=== PATIENT | female | born 1975 | race Caucasian/White ===

== ENCOUNTER 2020-10-23 16:11 | Outpatient (REF) | payer OTHER, MEDICAID, SELFPAY ==
[2020-10-23 16:40] LABS: MANUAL DIFF FLAG NO
[2020-10-23 16:54] LABS: Basophils Percent Auto 0.3 % (0-2); Eosinophils Absolute Auto 0.1 X10*3/uL (0.0-0.4); Eosinophils Percent Auto 1.2 % (0-4); Hematocrit 38.6 % (37-47); Hemoglobin 12.4 g/dl (12.0-16.0); Imm Gran Abs Auto 0.02 X10*3/uL (0.00-0.03); Imm Gran Pct Auto 0.2 % (0.0-0.4); Lymphocytes Absolute Auto 3.4 X10*3/uL (1.2-4.9); Lymphocytes Percent Auto 37.2 % (20-40); Mean Corpuscular HGB Conc 32.1 g/dl (31.0-35.0); Mean Corpuscular Hemoglobin 28.7 pg (27.0-33.0); Mean Corpuscular Volume 89.4 fL (80-98); Mean Platelet Volume 10.3 fL (9.4-12.3); Monocytes Absolute Auto 0.4 X10*3/uL (0.1-1.2); Monocytes Percent Auto 4.6 % (2-11); Neutrophils Absolute Auto 5.1 X10*3/uL (2.0-8.3); Neutrophils Percent Auto 56.5 % (45-73); Platelet Count 354 X10*3/uL (160-400); Red Blood Count 4.32 X10*6/uL (4.20-5.50); Red Cell Distribution Width 12.6 % (11.0-16.0)
[2020-10-23 17:10] LABS: Alanine Aminotransferase 30 U/L (0-31); Albumin Level 4.7 g/dL (3.5-5.0); Alkaline Phosphatase 110 U/L (39-117); Anion Gap 13 (12-20); Aspartate Amino Transferase 21 U/L (5-31); Bilirubin Total 0.2 mg/dL (0.0-1.0); Blood Urea Nitrogen 20 mg/dL (9-16); Calcium 9.9 mg/dL (8.4-10.2); Carbon Dioxide 28 mmol/L (22-29); Chloride 104 mmol/L (96-108); Estimated Glomerular Filt Rate > 60; Glucose Random 101 mg/dL (60-115); Potassium 4.7 mmol/l (3.3-5.1); Sodium 140 mmol/L (135-145); Total Protein 7.8 g/dL (6.5-8.0)
[2020-10-23 17:31] LABS: Free T4 (Free Thyroxine) 0.87 ng/dL (0.71-1.85); Thyroid Stimulating Hormone 0.78 uIU/mL (0.32-4.0)
== END 2020-10-23 16:12 | disposition home or self-care (01) ==
LOC: HO.LAB 16:11
PROVIDERS: PCP Internal Medicine; Visit Provider Internal Medicine
DX: I10 Essential (primary) hypertension (principal); R53.83 Other fatigue
CPT/HCPCS: 36415; 80053; 84439; 84443; 85025

== ENCOUNTER 2020-10-25 14:09 | Outpatient (REF) | payer OTHER, MEDICAID, SELFPAY ==
--- NOTE | 2020-10-25 14:14 | MM_ITS ---
EXAMINATION: MM SCREENING DIGITAL BREAST TOMOSYNTHESIS, BILATERAL CLINICAL INFORMATION: Screening. Asymptomatic. The lifetime risk of breast cancer based on the Tyrer-Cuzick Model is 11%. COMPARISON: Mammography: 06/06/2019, 05/26/2018, 07/17/2015 TECHNIQUE: Digital breast tomosynthesis is performed in both the craniocaudal and mediolateral oblique views along with computer-aided detection (CAD). Synthesized 2D images are generated from the tomosynthesis. FINDINGS: There are scattered areas of fibroglandular density (ACR BI-RADS breast composition Category b). There are no significant masses, abnormal calcifications, or other abnormalities. Breast tissue composition borders on heterogeneously dense. There is no developing density. Axillary nodes are stable. Skin contours are smooth. MM/MM tomosynthesis screening BI IMPRESSION: No mammographic evidence of malignancy. ASSESSMENT: BI-RADS 1: Negative RECOMMENDATION: Routine annual mammography screening. This patient's information was entered into a reminder system with a target due date for their next mammogram.
== END 2020-10-25 14:10 | disposition home or self-care (01) ==
LOC: HO.MAMMO 14:09
PROVIDERS: PCP Internal Medicine; Visit Provider Internal Medicine
DX: Z12.31 Encounter for screening mammogram for malignant neoplasm of breast (principal)
CPT/HCPCS: 77063; 77067

== ENCOUNTER 2020-11-14 16:00 | Outpatient (REF) | payer OTHER, MEDICAID, SELFPAY ==
--- NOTE | ~2020-11-14 | US_ITS ---
EXAMINATION: US THYROID CLINICAL INFORMATION: Enlarged thyroid. COMPARISON: Ultrasound soft tissue head/neck thyroid dated 10/29/2007. TECHNIQUE: Linear transducer grayscale and color Doppler examination with attention to the region of the thyroid. FINDINGS: SIZE: Measurements of the thyroid lobes and nodules are given in sagittal, anteroposterior and transverse dimensions respectively. Right Thyroid Lobe: 5.2 x 1.8 x 1.7 cm, volume 7.9 mL. Previously 4.9 x 1.6 x 1.2 cm, volume 4.9 mL. Parenchyma: The gland echotexture is homogeneous. Thyroid vascularity is normal. Left Thyroid Lobe: 5.1 x 1.3 x 1.6 cm, volume 5.3 mL. Previously 4.5 x 1.0 x 1.2 cm, volume 2.8 mL. Parenchyma: The gland echotexture is homogeneous. Thyroid vascularity is normal. Isthmus: 0.3 cm in maximum AP dimension. Previously 0.2 cm. No focal thyroid nodule is seen. NODES: No lymphadenopathy is seen in the tissue surrounding the thyroid gland. US/US thyroid IMPRESSION: Unremarkable thyroid gland. ACR TI-RADS RECOMMENDATIONS: Ultrasound-guided fine-needle aspiration, followup ultrasound, no further follow up. * TR1 (0 point) and TR 2 (2 points): No FNA or follow up * TR3 (3 points): FNA if more than or equal to 2.5 cm in maximum dimension, follow up in 1, 3 and 5 years if 1.5 to 2.4 cm in maximum dimension. * TR4 (4-6 points): FNA if more than or equal to 1.5 cm in maximum dimension, follow up in 1, 2, 3 and 5 years if 1 to 1.4 cm in maximum dimension. * TR5 (more than or equal to 7 points): FNA if more than or equal to 1 cm in maximum dimension, follow up every year for 5 years if 0.5 to 0.9 cm in maximum dimension. * TR3, TR4 or TR5 nodules that are below the size threshold for follow up receive no follow up.
== END 2020-11-14 16:01 | disposition home or self-care (01) ==
LOC: HO.US 16:00
PROVIDERS: Visit Provider Internal Medicine
DX: E04.9 Nontoxic goiter, unspecified (principal)
CPT/HCPCS: 76536

== ENCOUNTER 2020-11-26 16:12 | Outpatient (REF) | payer OTHER, MEDICAID, SELFPAY ==
[2020-11-26 17:37] LABS: C Reactive Protein 0.62 mg/dL (< or = 0.50)
[2020-11-27 21:12] LABS: Thyroid Peroxidase Antibodies <1 IU/mL (<9)
== END 2020-11-26 16:13 | disposition home or self-care (01) ==
LOC: HO.LAB 16:12
PROVIDERS: PCP Internal Medicine; Visit Provider Internal Medicine
DX: M54.2 Cervicalgia (principal)
CPT/HCPCS: 36415; 86140; 86376

== ENCOUNTER 2021-07-06 10:11 | Outpatient (REF) | payer OTHER, MEDICAID, SELFPAY ==
[2021-07-06 10:22] LABS: MANUAL DIFF FLAG NO
[2021-07-06 11:11] LABS: Basophils Percent Auto 0.4 % (0-2); Eosinophils Absolute Auto 0.1 X10*3/uL (0.0-0.4); Eosinophils Percent Auto 0.8 % (0-4); Imm Gran Abs Auto 0.01 X10*3/uL (0.00-0.03); Imm Gran Pct Auto 0.1 % (0.0-0.4); Lymphocytes Absolute Auto 2.7 X10*3/uL (1.2-4.9); Lymphocytes Percent Auto 36.4 % (20-40); Mean Corpuscular HGB Conc 33.3 g/dl (31.0-35.0); Mean Corpuscular Hemoglobin 28.4 pg (27.0-33.0); Mean Corpuscular Volume 85.1 fL (80-98); Mean Platelet Volume 10.5 fL (9.4-12.3); Monocytes Absolute Auto 0.3 X10*3/uL (0.1-1.2); Monocytes Percent Auto 3.9 % (2-11); Neutrophils Absolute Auto 4.4 X10*3/uL (2.0-8.3); Neutrophils Percent Auto 58.4 % (45-73); Platelet Count 319 X10*3/uL (160-400); Red Blood Count 4.23 X10*6/uL (4.20-5.50); Red Cell Distribution Width 12.9 % (11.0-16.0); White Blood Count 7.5 X10*3/uL (4.8-10.8)
[2021-07-06 11:24] LABS: Estimated Average Glucose 143 mg/dL; Hemoglobin A1C 152.0323 umol/L; Hemoglobin A1c % 6.6 %
[2021-07-06 11:37] LABS: Alanine Aminotransferase 28 U/L (0-31); Albumin Level 4.6 g/dL (3.5-5.0); Alkaline Phosphatase 102 U/L (39-117); Anion Gap 11 (12-20); Aspartate Amino Transferase 21 U/L (5-31); Bilirubin Total 0.5 mg/dL (0.0-1.0); Blood Urea Nitrogen 13 mg/dL (9-16); Calcium 9.4 mg/dL (8.4-10.2); Carbon Dioxide 25 mmol/L (22-29); Chloride 107 mmol/L (96-108); Cholesterol 192 mg/dL; Estimated Glomerular Filt Rate > 60; Glucose Fasting 119 mg/dL (60-99); HDL Cholesterol 39 mg/dL; LDL Cholesterol Calculated 130 mg/dl; Potassium 4.5 mmol/L (3.3-5.1); Sodium 138 mmol/L (135-145); Total Protein 7.7 g/dL (6.5-8.0); Triglycerides 119 mg/dL
== END 2021-07-06 10:12 | disposition home or self-care (01) ==
LOC: HO.LAB 10:11
PROVIDERS: PCP Internal Medicine; Visit Provider Internal Medicine
DX: R73.9 Hyperglycemia, unspecified (principal); I10 Essential (primary) hypertension; Z83.3 Family history of diabetes mellitus
CPT/HCPCS: 36415; 80053; 80061; 83036; 85025

== ENCOUNTER 2021-08-17 10:09 | Outpatient (REF) | payer OTHER, MEDICAID, SELFPAY ==
[2021-08-17 11:12] LABS: Estimated Average Glucose 140 mg/dL; Hemoglobin A1c % 6.5 %
[2021-08-17 11:49] LABS: Anion Gap 12 (12-20); Blood Urea Nitrogen 15 mg/dL (9-16); Carbon Dioxide 26 mmol/L (22-29); Chloride 104 mmol/L (96-108); Estimated Glomerular Filt Rate > 60; Glucose Random 123 mg/dL (60-115); Potassium 4.6 mmol/L (3.3-5.1); Sodium 137 mmol/L (135-145)
== END 2021-08-17 10:10 | disposition home or self-care (01) ==
LOC: HO.LAB 10:09
PROVIDERS: PCP Internal Medicine; Visit Provider Internal Medicine
DX: E11.9 Type 2 diabetes mellitus without complications (principal)
CPT/HCPCS: 36415; 80048; 83036

== ENCOUNTER 2021-11-21 16:01 | Outpatient (REF) | payer OTHER, MEDICAID, SELFPAY ==
--- NOTE | ~2021-11-21 | MM_ITS ---
EXAMINATION: MM SCREENING DIGITAL BREAST TOMOSYNTHESIS, BILATERAL CLINICAL INFORMATION: Screening. Asymptomatic. The lifetime risk of breast cancer based on the Tyrer-Cuzick Model is 9.7%. COMPARISON: Mammography: October 25, 2020 and studies dating back to July 17, 2015 TECHNIQUE: Digital breast tomosynthesis is performed in both the craniocaudal and mediolateral oblique views along with computer-aided detection (CAD). Synthesized 2D images are generated from the tomosynthesis. FINDINGS: The breasts are heterogeneously dense, which may obscure small masses (ACR BI-RADS breast composition Category c). There are no significant masses, abnormal calcifications, or other abnormalities. MM/MM tomosynthesis screening BI IMPRESSION: There are no significant changes from prior study. ASSESSMENT: BI-RADS 1: Negative RECOMMENDATION: Routine annual mammography screening. This patient's information was entered into a reminder system with a target due date for their next mammogram.
== END 2021-11-21 16:02 | disposition home or self-care (01) ==
LOC: HO.MAMMO 16:01
PROVIDERS: PCP Internal Medicine; Visit Provider Internal Medicine
DX: Z12.31 Encounter for screening mammogram for malignant neoplasm of breast (principal)
CPT/HCPCS: 77063; 77067

== ENCOUNTER 2022-01-03 16:14 | Outpatient (REF) | payer OTHER, MEDICAID, SELFPAY ==
--- NOTE | ~2022-01-03 | XR_ITS ---
EXAMINATION: XR SHOULDER, RIGHT CLINICAL INFORMATION: Pain. Evaluate for spurs. Rheumatoid arthritis. COMPARISON: None. TECHNIQUE: AP external rotation, Grashey, scapular Y, and axillary views of the right shoulder. FINDINGS: No acute fracture or dislocation. Mild glenohumeral joint space narrowing with tiny inferior marginal osteophytes. No osseous erosion. No abnormal soft tissue calcification. XR/XR shoulder RT min 2V IMPRESSION: Minimal glenohumeral arthrosis.
== END 2022-01-03 16:15 | disposition home or self-care (01) ==
LOC: HO.XRAY 16:14
PROVIDERS: PCP Internal Medicine; Visit Provider Internal Medicine
DX: M25.511 Pain in right shoulder (principal)
CPT/HCPCS: 73030

== ENCOUNTER → 2022-02-11 10:57 | Outpatient (BNVA) | payer OTHER, MEDICAID, SELFPAY | PROVIDERS: PCP Internal Medicine; Visit Provider Physician Assistant | DX: G25.89 Other specified extrapyramidal and movement disorders (principal); M54.12 Radiculopathy, cervical region | CPT/HCPCS: J1040 ==

== ENCOUNTER 2022-02-17 14:50 | Outpatient (REF) | payer OTHER, MEDICAID, SELFPAY ==
[2022-02-17 15:34] LABS: Influenza A PCR POSITIVE (Negative); Influenza B PCR NEGATIVE (Negative); Resp Syncy Virus RNA Qual PCR NEGATIVE (Negative); SARS COV2 PCR INHOUSE NEGATIVE (Negative)
== END 2022-02-17 14:51 | disposition home or self-care (01) ==
LOC: HO.LNP 14:50
PROVIDERS: Visit Provider Internal Medicine
DX: Z20.822 Contact with and (suspected) exposure to COVID-19 (principal); R50.9 Fever, unspecified
CPT/HCPCS: 0241U

== ENCOUNTER 2022-08-30 08:21 | Outpatient (REF) | payer OTHER, MEDICAID, SELFPAY ==
[2022-08-30 08:36] LABS: MANUAL DIFF FLAG NO
[2022-08-30 09:26] LABS: Basophils Percent Auto 0.5 % (0-2); Eosinophils Absolute Auto 0.1 X10*3/uL (0.0-0.4); Eosinophils Percent Auto 0.9 % (0-4); Hematocrit 39.9 % (37.0-47.0); Hemoglobin 13.1 g/dl (12.0-16.0); Imm Gran Abs Auto 0.02 X10*3/uL (0.00-0.03); Imm Gran Pct Auto 0.3 % (0.0-0.4); Lymphocytes Absolute Auto 2.8 X10*3/uL (1.2-4.9); Lymphocytes Percent Auto 35.8 % (20-40); Mean Corpuscular HGB Conc 32.8 g/dl (31.0-35.0); Mean Corpuscular Hemoglobin 27.8 pg (27.0-33.0); Mean Corpuscular Volume 84.7 fL (80.0-98.0); Mean Platelet Volume 10.6 fL (9.4-12.3); Monocytes Absolute Auto 0.3 X10*3/uL (0.1-1.2); Monocytes Percent Auto 4.4 % (2-11); Neutrophils Absolute Auto 4.5 x10*3/uL (2.0-8.3); Neutrophils Percent Auto 58.1 % (45-73); Platelet Count 352 X10*3/uL (160-400); Red Blood Count 4.71 X10*6/uL (4.20-5.50); Red Cell Distribution Width 12.6 % (11.0-16.0); White Blood Count 7.8 X10*3/uL (4.8-10.8)
[2022-08-30 09:27] LABS: Appearance Urine Clear; Color Urine Yellow; Glucose Urine UA Negative (Negative); Leukocyte Esterase Urine Small (1+) (Negative); Nitrite Urine Negative (Negative); Specific Gravity - Urine 1.015 (1.005-1.025); UMIC TRIGGER UA YES; Urine Blood Small (1+) (Negative); Urine Ketones Negative (Negative); Urine Protein Negative (Neg-Trace)
[2022-08-30 09:27] LABS: Estimated Average Glucose 157 mg/dL; Hemoglobin A1c % 7.1 %
[2022-08-30 09:46] LABS: Bacteria Urine 2+ (None Seen); Hyaline Casts Urine 0-2 /LPF (0-2); RBC Urine 0-2 /HPF (0-2)
[2022-08-30 10:26] LABS: Alanine Aminotransferase 19 U/L (0-31); Albumin Level 4.7 g/dL (3.5-5.0); Alkaline Phosphatase 89 U/L (39-117); Anion Gap 14 (12-20); Aspartate Amino Transferase 16 U/L (5-31); Blood Urea Nitrogen 14 mg/dL (9-16); Calcium 9.9 mg/dL (8.4-10.2); Carbon Dioxide 23 mmol/L (22-29); Chloride 104 mmol/L (96-108); Cholesterol 204 mg/dL; Estimated Glomerular Filt Rate > 60; Glucose Random 147 mg/dL (60-115); HDL Cholesterol 32 mg/dL; LDL Cholesterol Calculated 141 mg/dl; Potassium 4.9 mmol/L (3.3-5.1); Sodium 136 mmol/L (135-145); Total Protein 7.8 g/dL (6.5-8.0); Triglycerides 158 mg/dL
[2022-08-30 10:50] LABS: Bilirubin Total 0.4 mg/dL (0.0-1.0)
[2022-08-30 12:29] LABS: Creatinine Urine 106.42 mg/dL; Microalbum/Creatinine Ratio Ur 19.7 ug/mg cr
== END 2022-08-30 08:22 | disposition home or self-care (01) ==
LOC: HO.LAB 08:21
PROVIDERS: PCP Internal Medicine; Visit Provider Internal Medicine
DX: Z00.00 Encounter for general adult medical examination without abnormal findings (principal); R73.03 Prediabetes
CPT/HCPCS: 36415; 80053; 80061; 81001; 82043; 83036; 85025

== ENCOUNTER 2022-11-24 16:18 | Outpatient (REF) | payer OTHER, MEDICAID, SELFPAY ==
--- NOTE | ~2022-11-24 | MM_ITS ---
EXAMINATION: MM SCREENING DIGITAL BREAST TOMOSYNTHESIS, BILATERAL CLINICAL INFORMATION: Screening. Asymptomatic. The lifetime risk of breast cancer based on the Tyrer-Cuzick Model is 12.2%. COMPARISON: Mammography: November 21, 2021 and studies dating back to July 17, 2015 TECHNIQUE: Digital breast tomosynthesis is performed in both the craniocaudal and mediolateral oblique views along with computer-aided detection (CAD). Synthesized 2D images are generated from the tomosynthesis. FINDINGS: The breasts are heterogeneously dense, which may obscure small masses (ACR BI-RADS breast composition Category c). There are no significant masses, abnormal calcifications, or other abnormalities. MM/MM tomosynthesis screening BI IMPRESSION: No significant changes from prior exam. ASSESSMENT: BI-RADS 1: Negative RECOMMENDATION: Routine annual mammography screening. This patient's information was entered into a reminder system with a target due date for their next mammogram.
== END 2022-11-24 16:19 | disposition home or self-care (01) ==
LOC: HO.MAMMO 16:18
PROVIDERS: PCP Internal Medicine; Visit Provider Student in an Organized Health Care Education/Training Program
DX: Z12.31 Encounter for screening mammogram for malignant neoplasm of breast (principal)
CPT/HCPCS: 77063; 77067

== ENCOUNTER 2023-03-05 12:03 | Outpatient (REF) | payer OTHER, MEDICAID, SELFPAY ==
[2023-03-05 13:22] LABS: Cholesterol 195 mg/dL; HDL Cholesterol 34 mg/dL; LDL Cholesterol Calculated 134 mg/dl; Triglycerides 138 mg/dL
== END 2023-03-05 12:04 | disposition home or self-care (01) ==
LOC: HO.LAB 12:03
PROVIDERS: PCP Internal Medicine; Visit Provider Internal Medicine
DX: E78.00 Pure hypercholesterolemia, unspecified (principal)
CPT/HCPCS: 36415; 80061

== ENCOUNTER 2023-03-27 08:24 | Outpatient (REF) | payer OTHER, MEDICAID, SELFPAY ==
[2023-03-27 09:28] LABS: Estimated Average Glucose 166 mg/dL; Hemoglobin A1c % 7.4 %
[2023-03-27 09:46] LABS: Anion Gap 13 (12-20); Blood Urea Nitrogen 16 mg/dL (9-16); Calcium 9.9 mg/dL (8.4-10.2); Chloride 106 mmol/L (96-108); Estimated Glomerular Filt Rate > 60; Glucose Random 159 mg/dL (60-115); Potassium 4.3 mmol/L (3.3-5.1); Sodium 138 mmol/L (135-145)
[2023-03-27 09:53] LABS: Carbon Dioxide 23 mmol/L (22-29)
== END 2023-03-27 08:25 | disposition home or self-care (01) ==
LOC: HO.LAB 08:24
PROVIDERS: PCP Internal Medicine; Visit Provider Internal Medicine
DX: E11.9 Type 2 diabetes mellitus without complications (principal)
CPT/HCPCS: 36415; 80048; 83036

== ENCOUNTER 2023-07-17 16:17 | Outpatient (REF) | payer OTHER, SELFPAY ==
[2023-07-17 16:39] LABS: MANUAL DIFF FLAG NO
[2023-07-17 17:17] LABS: Alanine Aminotransferase 38 U/L (0-31); Albumin Level 4.8 g/dL (3.5-5.0); Alkaline Phosphatase 97 U/L (39-117); Anion Gap 15 (12-20); Aspartate Amino Transferase 29 U/L (5-31); Bilirubin Total 0.2 mg/dL (0.0-1.0); Blood Urea Nitrogen 12 mg/dL (9-16); Calcium 10.7 mg/dL (8.4-10.2); Carbon Dioxide 24 mmol/L (22-29); Chloride 104 mmol/L (96-108); Cholesterol 220 mg/dL (<200); Estimated Glomerular Filt Rate > 60; Glucose Random 170 mg/dL (60-115); HDL Cholesterol 36 mg/dL (>40); LDL Cholesterol Calculated 139 mg/dL (<100); Potassium 4.5 mmol/L (3.3-5.1); Sodium 138 mmol/L (135-145); Total Protein 8.2 g/dL (6.5-8.0); Triglycerides 227 mg/dL (<150)
[2023-07-17 17:30] LABS: Creatinine Urine 30.31 mg/dL; Microalbum/Creatinine Ratio Ur 171.5 ug/mg cr (<30)
[2023-07-17 20:39] LABS: Basophils Percent Auto 0.4 % (0-2); Eosinophils Absolute Auto 0.1 X10*3/uL (0.0-0.4); Eosinophils Percent Auto 1.1 % (0-4); Hematocrit 41.5 % (37.0-47.0); Hemoglobin 13.4 g/dl (12.0-16.0); Imm Gran Abs Auto 0.01 X10*3/uL (0.00-0.03); Imm Gran Pct Auto 0.1 % (0.0-0.4); Lymphocytes Absolute Auto 4.3 X10*3/uL (1.2-4.9); Lymphocytes Percent Auto 46.1 % (20-40); Mean Corpuscular HGB Conc 32.3 g/dl (31.0-35.0); Mean Corpuscular Hemoglobin 28.6 pg (27.0-33.0); Mean Corpuscular Volume 88.5 fL (80.0-98.0); Mean Platelet Volume 11.3 fL (9.4-12.3); Monocytes Absolute Auto 0.4 X10*3/uL (0.1-1.2); Monocytes Percent Auto 4.5 % (2-11); Neutrophils Absolute Auto 4.5 x10*3/uL (2.0-8.3); Neutrophils Percent Auto 47.8 % (45-73); Platelet Count 360 X10*3/uL (160-400); Red Blood Count 4.69 X10*6/uL (4.20-5.50); Red Cell Distribution Width 12.5 % (11.0-16.0); White Blood Count 9.3 X10*3/uL (4.8-10.8)
[2023-07-18 07:54] LABS: Estimated Average Glucose 180 mg/dL; Hemoglobin A1c % 7.9 % (<6.0)
== END 2023-07-17 16:18 | disposition home or self-care (01) ==
LOC: HO.LAB 16:17
PROVIDERS: PCP Internal Medicine; Visit Provider Internal Medicine
DX: E11.9 Type 2 diabetes mellitus without complications (principal); I10 Essential (primary) hypertension
CPT/HCPCS: 36415; 80053; 80061; 82043; 82570; 83036; 85025

== ENCOUNTER 2023-09-17 11:22 | Outpatient (REF) | payer OTHER, SELFPAY ==
[2023-09-17 13:46] LABS: Estimated Average Glucose 169 mg/dL; Hemoglobin A1c % 7.5 % (<6.0)
[2023-09-17 14:01] LABS: Anion Gap 14 (12-20); Blood Urea Nitrogen 17 mg/dL (9-16); Calcium 10.1 mg/dL (8.4-10.2); Carbon Dioxide 26 mmol/L (22-29); Chloride 105 mmol/L (96-108); Estimated Glomerular Filt Rate > 60; Glucose Random 144 mg/dL (60-115); Potassium 3.9 mmol/L (3.3-5.1); Sodium 141 mmol/L (135-145)
== END 2023-09-17 11:23 | disposition home or self-care (01) ==
LOC: HO.10HDL 11:22
PROVIDERS: Visit Provider Internal Medicine
DX: E11.9 Type 2 diabetes mellitus without complications (principal); I10 Essential (primary) hypertension; R42 Dizziness and giddiness
CPT/HCPCS: 36415; 80048; 83036

== ENCOUNTER 2023-11-30 15:41 | Outpatient (REF) | payer OTHER, SELFPAY | END 2023-11-30 15:42 | disposition home or self-care (01) | LOC: HO.MAMMO 15:41 | PROVIDERS: PCP Internal Medicine; Visit Provider Internal Medicine | DX: Z12.31 Encounter for screening mammogram for malignant neoplasm of breast (principal) | CPT/HCPCS: 77063; 77067 ==

== ENCOUNTER → 2023-11-30 15:45 | Outpatient (BNV) | payer OTHER, SELFPAY | PROVIDERS: PCP Internal Medicine; Visit Provider Radiology Diagnostic Radiology | DX: Z12.31 Encounter for screening mammogram for malignant neoplasm of breast (principal) | CPT/HCPCS: 77063; 77067 ==

== ENCOUNTER 2024-02-26 08:11 | Day surgery (SDC) | payer OTHER, SELFPAY ==
[2024-02-24 15:18] VITALS: BMI 26.4
[2024-02-24 15:37] VITALS: BMI 26.4
--- NOTE | 2024-02-25 08:49 | HO.ANESPROP2 ---
Documented by User: Jennifer Mooney NP 02/25/24 08:50 HPI - Anesthesia Eval Consult details Narrative: 48yo F for Colonoscopy Anesthesia Pre-Procedure Meds Is the patient on any of the following meds?: SGLT2 Inhib PMFSH Active Problems Active Problems: All Active Problems Cervical radiculopathy (Acute) Scapular dyskinesis (Acute) Past Medical History Medical History (Updated 02/24/24 @ 15:36 by Lana Currie RN) PONV (postoperative nausea and vomiting) Hx of infertility History of blood transfusion Yeast infection Diabetes HTN (hypertension) Surgical History Surgical History (Updated 02/26/24 @ 08:19 by Sylvia Lucero) Tubal ligation status Hx of abdominoplasty Social History Social History (System 06/27/22 @ 14:29 by Radha Covington) Are you a primary urgent care physician assistant to a significant other at home: Yes (children, supportive ) Do you presently have visiting nurse or other home services: No Patient Tobacco Use Status: Former Tobacco user Tobacco use type: Cigarette Use of substances other than those prescribed or required for medical reasons: No Are you DNR?: No Advance Directives: No Advance Directives Information Provided: Yes Advance Directives on File: No Recently lost weight without trying: No Nutrition Risks: No Nutritional Risk Patient : No FDLMP: 2021 : No Poor oral hygiene: No Meds Allergies Allergy/AdvReac Type Severity Reaction Status Date / Time Penicillins [PENICILLINS] Allergy Intermediate rash Verified 02/26/24 08:19 Home Medications ?Medication ?Instructions ?Recorded ?Confirmed ?Last Taken ?Type fluconazole 150 mg tablet 150 mg PO QWEEK 02/11/22 02/26/24 Unknown History fluticasone propionate 50 1 spray intranasal BID PRN Allergy 02/11/22 02/26/24 Unknown History mcg/actuation nasal Symptoms spray,suspension lisinopril 5 mg tablet 5 mg PO DAILY 02/11/22 02/26/24 02/25/24 History empagliflozin 10 mg tablet 10 mg PO DAILY 02/24/24 02/26/24 02/21/24 History (Jardiance) labetalol 100 mg tablet 100 mg PO BID 02/24/24 02/26/24 02/26/24 History norethindrone acetate 5 mg tablet 5 mg PO DAILY 02/24/24 02/26/24 Unknown History Exam Height,Weight and Vital Signs: Height 5 ft Weight 61.235 kg Assessment and Plan Assessment Anesthesia Assessment: Chart Reviewed Documented by User: Skinny Allen MD 02/26/24 08:39 [facility] Past Medical History Medical History (Updated 02/24/24 @ 15:36 by Lana Currie, JUANA) PONV (postoperative nausea and vomiting) Hx of infertility History of blood transfusion Yeast infection Diabetes HTN (hypertension) Family History Family history of problems with anesthesia: No Surgical History Surgical History (Updated 02/26/24 @ 08:19 by Sylvia Lucero) Tubal ligation status Hx of abdominoplasty History of Problems with Anesthesia: No Social History Social History (System 06/27/22 @ 14:29 by Radha Covington) Are you a primary urgent care physician assistant to a significant other at home: Yes (children, supportive ) Do you presently have visiting nurse or other home services: No Patient Tobacco Use Status: Former Tobacco user Tobacco use type: Cigarette Use of substances other than those prescribed or required for medical reasons: No Are you DNR?: No Advance Directives: No Advance Directives Information Provided: Yes Advance Directives on File: No Recently lost weight without trying: No Nutrition Risks: No Nutritional Risk Patient : No FDLMP: 2021 : No Poor oral hygiene: No Meds Allergies Allergy/AdvReac Type Severity Reaction Status Date / Time Penicillins [PENICILLINS] Allergy Intermediate rash Verified 02/26/24 08:19 Home Medications ?Medication ?Instructions ?Recorded ?Confirmed ?Last Taken ?Type fluconazole 150 mg tablet 150 mg PO QWEEK 02/11/22 02/26/24 Unknown History fluticasone propionate 50 1 spray intranasal BID PRN Allergy 02/11/22 02/26/24 Unknown History mcg/actuation nasal Symptoms spray,suspension lisinopril 5 mg tablet 5 mg PO DAILY 02/11/22 02/26/24 02/25/24 History empagliflozin 10 mg tablet 10 mg PO DAILY 02/24/24 02/26/24 02/21/24 History (Jardiance) labetalol 100 mg tablet 100 mg PO BID 02/24/24 02/26/24 02/26/24 History norethindrone acetate 5 mg tablet 5 mg PO DAILY 02/24/24 02/26/24 Unknown History Exam Airway Mallampati Class: II TM Dist: >3cm Neck ROM: Full Assessment and Plan Assessment Anesthesia Assessment: Anesthesia Plan Discussed Final Anesthetic Review Family History of Problems with Anesthesia: No History of Problems with Anesthesia: No NPO: Yes ASA Class: II Final Preanesthetic Review: No Changes in Pt Med Stat, Meds/Allgs Chart Reviewed, Consent Obtained/Reviewed and Anes Risks/Benef Reviewed Patient Risk: Low Procedure Risk: Low Anesthetic Plan Anesthetic Plan: TIVA Disposition: Standard PACU
--- OUTSIDE RECORDS SUMMARY | 2024-02-26 08:14 | XMS_ITS | Continuity of Care Document ---
Author Organization [facility] Address [address] [place] [id number]- Care Team Providers Care Criminal Justice Instructor Name Role Phone Kalin Peña MD Primary Care Physician Encounter [facility] [place] Date(s): 01/05/20 - 01/12/20 [facility] [address] [place] [id number]- [facility] Attending Physician: Joe Limon MD Admitting Physician: Joe Limon MD Referring Physician: Case Najera MD Allergies, Adverse Reactions, Alerts Substance Reaction Severity Status penicillins hives,swelling Active Medications Alcohol Pads See Instructions, # 1 pack/packet, Refills 1, Tot. Refills 1, Maintenance, To use with insulin administration 3 times a day, 01/05/20 16:36:00 EDT, Compound, 152.4, cm, 10/27/19 10:15:00 EST, Height,70.45, kg, 10/18/19 10:17:00 EST, Dry Weight Start Date: 01/05/20 Status: Ordered aspirin 81 mg oral tablet 1 tablet = 81 mg, By Mouth, Daily, 0 Refills, Maintenance, 08/24/19 8:23:07 EST Start Date: 08/24/19 Status: Ordered Humalog Kwik Pen 100 units/mL subcutaneous injection = 10 units, Subcutaneous Injection, 2 times a day with meals, # 15 mL, 3 Refills, Maintenance, 01/05/20 16:35:00 EDT, [id number], 152.4, cm, 10/27/19 10:15:00 EST, Height, 70.45, kg, 10/18/2009:17:00 EST, Dry Weight Start Date: 01/05/20 Status: Ordered labetalol 100 mg oral tablet 1 tablet = 100 mg, By Mouth, 2 times a day, # 60 tablet, 1 Refills, Maintenance, 08/16/19 16:20:48 EST, Tablet Start Date: 08/16/19 Status: Ordered Lantus Solostar Pen 100 units/mL subcutaneous solution = 18 units, Subcutaneous Injection, Daily at bedtime, # 15 mL, 2 Refills, Maintenance, 01/05/20 16:32:00 EDT, [facility]/pharmacy #[id number], 152.4, cm, 10/27/19 10:15:00 EST, Height, 70.45, kg, 10/18/19 10:17:00 EST, Dry Weight Start Date: 01/05/20 Status: Ordered One Touch Delica Lancets See Instructions, # 1 pack/packet, Refills 5, Tot. Refills 5, Maintenance, 1 packet = 100 lancets.33 gauge. To test BS 4 x day, 12/15/19 19:23:00 EDT, Compound, 152.4, cm, 10/27/19 10:15:00 EST, Height, 70.45, kg, 10/18/19 10:17:00 EST, Dry Weight Start Date: 12/15/19 Status: Ordered OneTouch Verio Glucose Meter See Instructions, # 1 pack/packet, Refills 0, Tot. Refills 0, Maintenance, Gestational diabetes to test BS 4 x day, 12/15/19 19:23:00 EDT, Compound, 152.4, cm, 10/27/19 10:15:00 EST, Height, 70.45, kg, 10/18/19 10:17:00 EST, Dry Weight Start Date: 12/15/19 Status: Ordered OneTouch Verio Test Strips See Instructions, # 1 pack/packet, Refills 5, Tot. Refills 5, Maintenance, To test BS 4 x day. 1 packet = 100 test strips, 12/15/19 19:23:00 EDT, Compound, 152.4, cm, 10/27/19 10:15:00 EST, Height, 70.45, kg, 10/18/19 10:17:00 EST, Dry Weight Start Date: 12/15/19 Status: Ordered Pen [place], 31 G x 5 mm BD Ultra Fine III See Instructions, # 120 each, Refills 2, Tot. Refills 2, Maintenance, To use with insulin administration 3 times daily, 01/05/20 16:33:00 EDT, Compound, 152.4, cm, 10/27/19 10:15:00 EST, Height, 70.45, kg, 10/18/19 10:17:00 EST, Dry Weight Start Date: 01/05/20 Status: Ordered Multivitamins By Mouth, Daily, 0 Refills, Maintenance, 10/18/19 8:51:00 EST Start Date: 10/18/19 Status: Ordered Problem List Condition Effective Dates Status Health Status Inform ant Sanchez cerclage present(Confirmed) Active Premature cervical dilation in second trimester(Confirmed) Active resulting from in vitro fertilization in second trimester(Confirmed) Active History of premature rupture of membranes (PROM) in previous , currently (Confirmed) Active Hypertension(Confirmed) Active 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
--- OUTSIDE RECORDS SUMMARY | 2024-02-26 08:14 | XMS_ITS | Continuity of Care Document ---
Author Organization [facility] ter Address [address] [place] [id number]- Care Team Providers Care Motor And Generator Brush Cutter Name Role Phone Kalin Peña MD Primary Care Physician [phone] Encounter [facility] Date(s): 02/16/20 - 02/19/[address] [address]- [facility] Discharge Disposition: A-D/C Home Attending Physician: Case Najera MD Admitting Physician: Case Najera MD Referring Physician: Case Najera MD Allergies, Adverse Reactions, Alerts Substance Reaction Severity Status penicillins hives,swelling Active Medications acetaminophen 500 mg oral tablet 2 tablet = 1,000 mg, By Mouth, Every 6 hours, PRN for pain, for 14 days, # 50 tablet, 1 Refills, Acute 03/18/20 8:10:00 EDT, 02/19/20 8:10:00 EDT, Tablet, [id number], 152.5, cm, 02/19/20 7:31:00 EDT, Height, 70.45, kg, 02/16/20 9:43:00 EDT, . Start Date: 02/19/20 Stop Date: 03/18/20 Status: Ordered docusate sodium 100 mg oral capsule 100 mg, 1, capsule, By Mouth, 2 times a day, PRN, # 28 capsule, Refills 1, Tot. Refills 1, Maintenance, as needed for constipation, 02/19/20 8:10:00 EDT, Route to Pharmacy Electronically, [id number], 152.5, cm, 02/19/20 7:31:00 EDT, Height, 70... Start Date: 02/19/20 Stop Date: 03/18/20 Status: Ordered ibuprofen 800 mg oral tablet 800 mg, 1, tablet, By Mouth, Every 8 hours, for 14 days, not to exceed 3200 mg/day, # 42 tablet, Refills 1, Tot. Refills 1, Acute 03/18/20 8:10:00 EDT, 02/19/20 8:10:00 EDT, Route to Pharmacy Electronically, [facility]/pharmacy #[id number], 152.5, cm, 02/19/20 7:3... Start Date: 02/19/20 Stop Date: 03/18/20 Status: Ordered labetalol 100 mg oral tablet 2 tablet = 200 mg, By Mouth, 2 times a day, # 120 tablet, 1 Refills, Maintenance, 02/19/20 8:06:00 EDT, Tablet, [facility]/pharmacy #[id number], 152.5, cm, 02/19/20 7:31:00 EDT, Height, 70.45, kg, 02/16/20 9:43:00 EDT, Dry Weight Start Date: 02/19/20 Stop Date: 04/19/20 Status: Ordered oxyCODONE 5 mg oral tablet 5 mg, 1, tablet, By Mouth, Every 6 hours, PRN, for 7 days, (7-10), # 7 tablet, Refills 0, Tot. Refills 0, Acute 02/26/20 8:10:00 EDT, Pain , Severe, 02/19/20 8:10:00 EDT, Route to Pharmacy Electronically, [facility]/pharmacy #[id number], Partial fill upon patient... 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 Ventricular ectopy(Confirmed) Active Procedures Procedure Date Related Diagnosis Body Site Status delivery only; 02/16/20 C ompleted Vital Signs Most recent to oldest [Reference Range]: 1 2 3 Height 152.5 cm (02/19/20 4:30 PM) 152.5 cm (02/19/20 4:25 PM) 152.5 cm (02/19/20 1:21 PM) Weight 70.45 kg (02/16/20 9:47 AM) Oxygen Saturation [94-100 %] 97 % (02/19/20 4:25 PM) 97 % (02/19/20 7:31 AM) 99 % (02/18/20 4:00 PM) Pulse Rate [55-90 bpm] 70 bpm (02/19/20 4:25 PM) 73 bpm (02/19/20 1:21 PM) 70 bpm (02/19/20 10:17 AM) Body Mass Index [18.5-24.99] 30.29 *>HHI* (02/16/20 9:47 AM) Blood Pressure [90-138/55-84 mm Hg] 152/82mm Hg *H* (02/19/20 4:30 PM) 142/62mm Hg *H* (02/19/20 4:25 PM) 136/73mm Hg (02/19/20 1:21 PM) Respiratory Rate [16-30 br/min] 18 br/min (02/19/20 4:25 PM) 20 br/min (02/19/20 2:20 PM) 20 br/min (02/19/20 11:11 AM) Temperature [96.8-100.4 DegF] 98.4 DegF (02/19/20 4:25 PM) 97.9 DegF (02/19/20 10:17 AM) 97.8 DegF (02/19/20 7:31 AM) Mode of Delivery (Oxygen) Room air (02/19/20 7:31 AM) Room air (02/18/20 4:00 PM) Room air (02/18/20 12:00 PM) Blood pressure sites Arm, left (02/19/20 4:30 PM) Arm, right (02/19/20 1:21 PM) Arm, right (02/19/20 10:17 AM) Temperature Route Oral (02/19/20 4:25 PM) Axillary (02/19/20 10:17 AM) Axillary (02/19/20 7:31 AM) Dry Weight 70.45 kg (02/16/20 9:47 AM) Social History Social History Type Response Smoking Status Former smoker; Other : quit 2013; entered on: 06/28/18 Sex
--- OUTSIDE RECORDS SUMMARY | 2024-02-26 08:14 | XMS_ITS | Continuity of Care Document ---
Author Organization [facility] ter Address [address] [place] [id number]- Care Team Providers Care Continuous Improvement Engineer Name Role Phone Kalin Peña MD Primary Care Physician Encounter [facility] Date(s): 10/18/19 - 10/18/[address] [address]- [facility] Discharge Disposition: A-D/C Home Attending Physician: Nighat Vallejo MD Admitting Physician: Nighat Vallejo MD Referring Physician: Nighat Vallejo MD Allergies, Adverse Reactions, Alerts Substance Reaction Severity Status penicillins hives,swelling Active Medications aspirin 81 mg oral tablet 1 tablet = 81 mg, By Mouth, Daily, 0 Refills, Maintenance, 08/24/19 8:23:07 EST Start Date: 08/24/19 Status: Ordered indomethacin 25 mg oral capsule 1 capsule = 25 mg, By Mouth, Every 6 hours, with food or milk, # 8 capsule, 0 Refills, Maintenance,10/18/19 21:52:00 EST, Capsule, [facility]/pharmacy #[id number], 152.4, cm, 10/18/19 10:17:00 EST, Height, 70.45, kg, 10/18/19 10:17:00 EST, Dry Weight Start Date: 10/18/19 Stop Date: 10/20/19 Status: Ordered labetalol 100 mg oral tablet 1 tablet = 100 mg, By Mouth, 2 times a day, # 60 tablet, 1 Refills, Maintenance, 08/16/19 16:20:48 EST, Tablet Start Date: 08/16/19 Status: Ordered Multivitamins By Mouth, Daily, 0 Refills, Maintenance, 10/18/19 8:51:00 EST Start Date: 10/18/19 Status: Ordered progesterone 200 mg oral capsule 1 capsule = 200 mg, Vaginally, Daily, for 10 days, # 30 capsule, 3 Refills, Acute 11/27/19 22:35:00EST, 10/18/19 22:35:00 EST, [id number], 152.4, cm, 10/18/19 10:17:00 EST, Height, 70.45, kg, 10/18/19 10:17:00 EST, Dry Weight Start Date: 10/18/19 Stop Date: 11/27/19 Status: Ordered Problem List Condition Effective Dates Status Health Status Inform ant Premature cervical dilation in second trimester(Confirmed) Active resulting from in vitro fertilization in second trimester(Confirmed) Active History of premature rupture of membranes (PROM) in previous , currently (Confirmed) Active Hypertension(Confirmed) Active 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 Ventricular ectopy(Confirmed) Active Procedures Procedure Date Related Diagnosis Body Site Status Cerclage of cervix during pr egnancy by vaginal approach 10/18/19 Completed Vital Signs Most recent to oldest [Reference Range]: 1 2 3 Height 152.4 cm (10/18/19 10:11 AM) Weight 70.45 kg (10/18/19 10:11 AM) Oxygen Saturation [94-100 %] 97 % (10/18/19 9:00 PM) 99 % (10/18/19 8:15 PM) 98 % (10/18/19 8:00 PM) Pulse Rate [55-90 bpm] 74 bpm (10/18/19 8:07 PM) 81 bpm (10/18/19 10:11 AM) Body Mass Index [18.5-24.99] 30.33 *>HHI* (10/18/19 10:11 AM) Blood Pressure [90-138/55-84 mm Hg] 118/66mm Hg (10/18/19 9:00 PM) 132/75mm Hg (10/18/19 8:15 PM) 122/72mm Hg (10/18/19 8:07 PM) Respiratory Rate [16-30 br/min] 16 br/min (10/18/19 9:00 PM) 17 br/min (10/18/19 8:15 PM) 18 br/min (10/18/19 8:00 PM) Temperature [96.8-100.4 DegF] 98.1 DegF (10/18/19 9:00 PM) 97.9 DegF (10/18/19 8:15 PM) 97.3 DegF (10/18/19 7:15 PM) Mode of Delivery (Oxygen) Room air (10/18/19 9:00 PM) Room air (10/18/19 8:15 PM) Room air (10/18/19 8:00 PM) Blood pressure sites Arm, left (10/18/19 9:00 PM) Arm, left (10/18/19 7:15 PM) Arm, right (10/18/19 5:20 PM) Temperature Route Oral (10/18/19 9:00 PM) Oral (10/18/19 8:15 PM) Oral (10/18/19 7:15 PM) Dry Weight 70.45 kg (10/18/19 10:11 AM) Weight Obtained Via Patient/family state d (10/18/19 10:11 AM) Dry Weight Obtained Via Patient/family s tated (10/18/19 10:11 AM) Sensory deficits None (10/18/19 10:11 AM) Mobility assistance Independent (10/18/19 10:11 AM) Social History Social History Type Response Smoking Status Former smoker; Other : quit 2013; entered on: 06/28/18 Sex
--- OUTSIDE RECORDS SUMMARY | 2024-02-26 08:14 | XMS_ITS | Continuity of Care Document ---
Author Organization [facility] ter Address [address] [place] [id number]- Care Team Providers Care Senior Project Accountant Name Role Phone Kalin Peña MD Primary Care Physician Encounter [facility] Date(s): 10/18/19 - 11/23/[address] [address]- [facility] Attending Physician: Case Najera MD Admitting Physician: [...] capsule, 0 Refills, Maintenance,10/18/19 21:52:00 EST, Capsule, [facility]/pharmacy #[id number], 152.4, cm, 10/18/19 10:17:00 EST, Height, [...]
--- OUTSIDE RECORDS SUMMARY | 2024-02-26 08:14 | XMS_ITS | Continuity of Care Document ---
Author Organization [facility] ter Address [address] [place] [address]- Care Team Providers Care Mender Knit Goods Name Role Phone Kalin Peña MD Primary Care Physician [phone] Encounter [facility] [place] Date(s): 02/09/20 - 03/18/[address] [address] Attending Physician: Case Najera MD Referring Physician: Case Najera MD Allergies, Adverse Reactions, Alerts Substance Reaction Severity Status penicillins hives,swelling Active Medications docusate sodium 100 mg oral capsule 100 mg, 1, capsule, By Mouth, 2 times a day, PRN, # 28 capsule, Refills 1, Tot. Refills 1, Maintenance, as needed for constipation, 02/19/20 8:10:00 EDT, Route to Pharmacy Electronically, [facility]/pharmacy #[id number], 152.5, cm, 02/19/20 7:31:00 EDT, Height, 70... Start Date: 02/19/20 Stop Date: 03/18/20 Status: Ordered labetalol 100 mg oral tablet 2 tablet = 200 mg, By Mouth, 2 times a day, # 120 tablet, 1 Refills, Maintenance, 02/19/20 8:06:00 EDT, Tablet, [id number], 152.5, cm, 02/19/20 7:31:00 EDT, Height, 70.45, kg, 02/16/20 9:43:00 EDT, Dry Weight Start Date: 02/19/20 Stop Date: 04/19/20 Status: Ordered Multivitamins By Mouth, Daily, 0 [...]
--- OUTSIDE RECORDS SUMMARY | 2024-02-26 08:14 | XMS_ITS | Continuity of Care Document ---
Author Organization [facility] ter Address [address] [place] [address]- Care Team Providers Care Marine Steamfitter Name Role Phone Kalin Peña MD Primary Care Physician [place] [facility] [place]10/20 - 03/17/[address] [address]- [facility] Attending Physician: Case Najera MD Admitting Physician: aCse Najera MD Referring Physician: Case Najera MD [...] EDT, Height, 70.45, kg, 02/16/20 9:43:00 EDT, DrEugenia.. Start Date: 02/19/20 Stop Date: 03/18/20 Status: Ordered docusate sodium 100 mg oral capsule 100 mg, 1, capsule, By Mouth, 2 times a day, PRN, # 28 capsule, Refills 1, Tot. Refills 1, Maintenance, as needed for constipation, 02/19/20 8:10:00 EDT, Route to Pharmacy Electronically, [facility]/pharmacy #[id number], 152.5, cm, 02/19/20 7:31:00 EDT, Height, 70... Start Date: 02/19/20 Stop Date: 03/18/20 Status: Ordered ibuprofen 800 mg oral tablet 800 mg, 1, tablet, By Mouth, Every 8 hours, for 14 days, not to exceed 3200 mg/day, # 42 tablet, Refills 1, Tot. Refills 1, Acute 03/18/20 8:10:00 EDT, 02/19/20 8:10:00 EDT, Route to Pharmacy Electronically, [facility]/pharmacy #[id number], 152.5, cm, 02/19/20 7:3... Start Date: 02/19/20 Stop Date: 03/18/20 Status: Ordered labetalol 100 mg oral tablet 2 tablet = 200 mg, By Mouth, 2 times a day, # 120 tablet, 1 Refills, Maintenance, 02/19/20 8:06:00 EDT, Tablet, [facility]/pharmacy #[id number], 152.5, cm, 02/19/20 7:31:00 EDT, [...]
--- OUTSIDE RECORDS SUMMARY | 2024-02-26 08:14 | XMS_ITS | Continuity of Care Document ---
Author Organization [facility] Address [address] [place] [address]- Care Team Providers Care Supervisor Cooler Service Name Role Phone Kalin Peña MD Primary Care Physician [phone] Encounter [facility] [place] Date(s): 10/27/19 - 11/06/19 [facility] [address] [place] [address]- [facility] Attending Physician: Janine Acharya Admitting Physician: AdmtrJanine Referring Physician: Admtr, ArAnthony Allergies, Adverse Reactions, Alerts Substance Reaction Severity [...] capsule, 0 Refills, Maintenance,10/18/19 21:52:00 EST, Capsule, [facility] #[id number], 152.4, cm, 10/18/19 10:17:00 EST, [...]
--- OUTSIDE RECORDS SUMMARY | 2024-02-26 08:14 | XMS_ITS | Continuity of Care Document ---
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
--- OUTSIDE RECORDS SUMMARY | 2024-02-26 08:14 | XMS_ITS | Patient Health Record ---
Author Organization [facility] Address [address] [place] [address] Care Team Providers Care Gun Mechanic Name Role Phone Kalin Peña MD Primary Care Provider Isaak Winslow [phone] ALLERGIES Allergen (clinical drug ingredient) Drug/Non Drug Allergy documented on EMR Reaction Allergy Type Onset Date Status Penicillin Unknown Drug Allergy Active REASON FOR REFERRAL No Information MEDICATIONS Medication SIG (Take, Route, Frequency, Duration) Notes Start Date End Date Status Norethindrone Acetate 5 MG TAKE 1 TABLET BY MOUTH EVERY DAY Oral for 90 Active Jardiance 10 MG TAKE 1 TABLET BY FLOR TH EVERY DAY Oral for 30 Active Labetalol HCl 100 MG Oral for 90 Active SOCIAL HISTORY Tobacco Use: Social History Observation Description Date Details (start date - stop date) Former Smoker NA - NA Sex Assigned At : Social History Observation Description Sex Assigned At Unknown Tobacco Use/Smoking Question Answer Notes Patient is a former smoker How long has it been since you last smoked? > 10 years Alcohol Screen Question Answer Notes Did you have a drink contain ing alcohol in the past year? Yes How often did you have a dri nk containing alcohol in the past year? Monthly or less (1 point) How many drinks did you have on a typical day when you were drinking in the past year? 1 or 2 drinks (0 point) How often did you have 6 or more drinks on one occasion in the past year? Never (0 point) Points 1 Interpretation Negative PROBLEMS Problem Type ICD Code Onset Dates Problem Status W/U Status Risk SNOMED Code Notes Problem Colon cancer screening (Z12.11) Active confirmed Colon cancer screening (533179163) Problem Encounter for other preprocedural examination (Z01.818) Active confirmed Pre-procedure evaluation check (610555061) VITAL SIGNS Temperature 97.7 degrees Fahrenheit 11/26/2023 Blood pressure diastolic 00 mm Hg 11/26/2023 Height 5 ft 0 in in 11/26/2023 Blood pressure systolic 00 mm Hg 11/26/2023 Weight 135 lbs 11/26/2023 BMI 26.36 kg/m2 11/26/2023 Encounters Encounter Location Date Provider Diagnosis [facility] Outpatient [address] [place], [place] [id number] 02/26/2024 Isaak Gonzalez [facility] [address] [place] [address] 11/26/2023 Isaak Gonzalez Colon cancer screeni ng Z12.11 and Encounter for other preprocedural examination Z01.818 ASSESSMENTS Encounter Date Diagnosis Assessment Notes Treatment Notes Treatment Clinical Notes 11/26/2023 Colon cancer screening (ICD-10 - Z12.11) STOP JARDIANCE FOR A COMPLETE THREE DAYS BEFORE THE COLONOSCOPY 11/26/2023 Encounter for other preprocedural examination (ICD-10 - Z01.818) PLAN OF TREATMENT Future Test Test Name Order Date COLONOSCOPY 11/26/2023 Next Appt Details Provider Name:Isaak Gonzalez , 02/26/2024 09:50:00 AM, [address] [place] [address] , [place], [place], [phone], Insurance Providers Payer Name Payer Address Payer Phone Subscriber Number Group Number Insured Name Patient Relationship to Insured Coverage Start Date Coverage End Date [facility] [address] [place] [address] [id number] KRISTA CHOPRA Self - patient is the insured MEDICAL (GENERAL) HISTORY Medical History History ICD Code Hypertension NIDDM Denies [place],DM,CVA,Lung disease,renal dise ase Surgical History Surgery Date(Month/Year) Abdominoplasty 04/18
--- OUTSIDE RECORDS SUMMARY | 2024-02-26 08:14 | XMS_ITS | Continuity of Care Document ---
Author Organization [facility] Address [address] [place] [address]- Care Team Providers Care Flush Tester Name Role Phone Kalin Peña MD Primary Care Physician [place] [facility] [place](s): 01/06/20 - 01/16/20 [facility] [address] [place] [address]- [facility] Attending Physician: AdmNathan [id number] Admitting Physician: Admtr, ArAnthony Referring Physician: Admtr, Ar8 Allergies, Adverse Reactions, Alerts Substance Reaction Severity [...] mL, 2 Refills, Maintenance, 01/05/20 16:32:00 EDT, [facility]/pharmacy #[id number], 152.4, cm, 10/27/19 10:15:00 EST, [...] Weight Start Date: 12/15/19 Status: Ordered [facility], 31 G x 5 mm BD Ultra [...]
[2024-02-26 08:37] VITALS: BP 134/79; PULSE 66; RESP 16; TEMP 36.8; O2SAT 99
--- NOTE | 2024-02-26 08:38 | PC.NURSE ---
No preop urine preg needed. patient tubal ligation status. Dr. Allen aware.
[2024-02-26 08:39] LABS: Glucose, Whole Blood 134 mg/dL (60-115)
[2024-02-26] MEDS: Lactated Ringers 1,000 ML 100 ML IVCONT (08:46)
[2024-02-26 09:33] VITALS: BP 95/51; PULSE 70; RESP 16; TEMP 36.1; O2SAT 99
--- NOTE | 2024-02-26 09:38 | P.BOP_ITS ---
Brief Operative Note Date of Service: 02/26/24 Pre-op diagnosis: Screening Post-op diagnosis: other (Diverticulosis) Procedure: Colonoscopy to the cecum Surgeon: Isaak Gonzalez MD Anesthesia: MAC Was an Special Education Teachers used for this Procedure?: No Estimated blood loss (mL): 0 Pathology: none sent Condition: stable Disposition: PACU
[2024-02-26 09:48] VITALS: BP 114/70; PULSE 63; RESP 16; TEMP 36.1; O2SAT 100
--- NOTE | 2024-02-26 09:55 | OP_ITS ---
DATE OF SERVICE: 02/26/2024 SURGEON: Isaak Gonzalez MD INDICATIONS: The patient presents for evaluation of colorectal cancer screening. Full consent has been obtained from her for this, including risks of bleeding and perforation. PREOPERATIVE DIAGNOSIS: Colorectal cancer screening. POSTOPERATIVE DIAGNOSIS: PROCEDURE PERFORMED: Colonoscopy to cecum. ESTIMATED BLOOD LOSS: COMPLICATIONS: ANESTHESIA: Monitored anesthesia care. ASSISTANTS: SPECIMENS: POSTOPERATIVE DIAGNOSES: Colorectal cancer screening, diverticulosis, and internal and external hemorrhoids. DESCRIPTION OF PROCEDURE: The patient was placed in left lateral decubitus position. The digital rectal exam revealed some external hemorrhoids. The Olympus video pediatric colonoscope was then entered into the rectum and advanced easily to the cecum. Once in the cecum, I did identify normal-appearing cecal pouch with appendiceal orifice and a normal-appearing ileocecal valve. The entire cecum and ileocecal valve appeared normal. The scope was slowly withdrawn assessing all mucosal surfaces carefully. Preparation was excellent. I did not visualize any sign of polyps, colitis, nor angiodysplasia. There were occasional diverticula in the sigmoid colon. In the rectum, scope was retroflexed, visualizing internal hemorrhoids, but no other pathology. The rectal mucosa appeared normal. Scope was straightened and withdrawn from the patient. She tolerated the procedure well and was returned to the recovery area in stable condition. IMPRESSION: 1. Internal and external hemorrhoids. 2. Sigmoid diverticulosis. PLAN: Given her negative exam and negative family history, I would recommend a followup coloscopy in 10 years for further screening. She will, otherwise, see me on a p.r.n. basis. Isaak Gonzalez MD RMW/MODL / [phone]
--- NOTE | 2024-02-26 11:21 | PC.NURSE ---
Patient stating missing yellow thumb ring as per patient. Staff reviewed initial preop belongings sheet where 1 ring was documented. Following transfer to discharge jensen patient stated did not have ring, asked patient to check pockets and to no avail did not locate, returned to pacu and searched floor, stretcher, cubby holding area, all waste bins, all linnen bags, also contacted house keeping who proceeded to search all hospital linnens and waste sent from pacu to basement to no avail. Patient stated she was interested in going home at this time. Leadership team in discussion throughout.
--- NOTE | 2024-02-26 17:04 | PC.NURSE ---
24 hour preop note documented by Dr Gonzalez using paper form
== END 2024-02-26 11:20 | disposition home or self-care (01) ==
PROVIDERS: PCP Internal Medicine; Visit Provider Internal Medicine
PROC: 0DJD8ZZ Inspection of Lower Intestinal Tract, Via Natural or Artificial Opening Endoscopic (ICD-10-PCS; CPT 45378; principal; 2024-02-26 09:40)
DX: Z12.11 Encounter for screening for malignant neoplasm of colon (principal); K57.30 Diverticulosis of large intestine without perforation or abscess without bleeding; K64.8 Other hemorrhoids; K64.4 Residual hemorrhoidal skin tags; E11.9 Type 2 diabetes mellitus without complications; I10 Essential (primary) hypertension; Z79.899 Other long term (current) drug therapy
CPT/HCPCS: 45378; 82947; J2704

== ENCOUNTER 2024-08-12 07:49 | Outpatient (REF) | payer OTHER, SELFPAY ==
[2024-08-12 08:13] LABS: MANUAL DIFF FLAG NO
[2024-08-12 08:46] LABS: Basophils Percent Auto 0.2 % (0-2); Eosinophils Absolute Auto 0.1 X10*3/uL (0.0-0.4); Eosinophils Percent Auto 1.1 % (0-4); Hematocrit 40.1 % (37.0-47.0); Hemoglobin 13.7 g/dl (12.0-16.0); Imm Gran Abs Auto 0.03 X10*3/uL (0.00-0.03); Imm Gran Pct Auto 0.4 % (0.0-0.4); Lymphocytes Absolute Auto 2.8 X10*3/uL (1.2-4.9); Lymphocytes Percent Auto 33.6 % (20-40); Mean Corpuscular HGB Conc 34.2 g/dl (31.0-35.0); Mean Corpuscular Hemoglobin 29.7 pg (27.0-33.0); Mean Corpuscular Volume 86.8 fL (80.0-98.0); Mean Platelet Volume 10.4 fL (9.4-12.3); Monocytes Absolute Auto 0.4 X10*3/uL (0.1-1.2); Monocytes Percent Auto 4.6 % (2-11); Neutrophils Absolute Auto 5.1 x10*3/uL (2.0-8.3); Neutrophils Percent Auto 60.1 % (45-73); Platelet Count 330 X10*3/uL (160-400); Red Blood Count 4.62 X10*6/uL (4.20-5.50); Red Cell Distribution Width 12.1 % (11.0-16.0); White Blood Count 8.4 X10*3/uL (4.8-10.8)
[2024-08-12 09:02] LABS: Estimated Average Glucose 177 mg/dL; Hemoglobin A1C 219.4124 umol/L; Hemoglobin A1c % 7.8 % (<6.0); Total Hemoglobin (HGBA1C) 3581.8517 umol/L
[2024-08-12 09:22] LABS: Alanine Aminotransferase 41 U/L (0-31); Albumin Level 4.7 g/dL (3.5-5.0); Alkaline Phosphatase 81 U/L (39-117); Anion Gap 10 (12-20); Aspartate Amino Transferase 32 U/L (5-31); Bilirubin Total 0.5 mg/dL (0.0-1.0); Blood Urea Nitrogen 13 mg/dL (9-16); Calcium 9.7 mg/dL (8.4-10.2); Carbon Dioxide 27 mmol/L (22-29); Chloride 104 mmol/L (96-108); Cholesterol 203 mg/dL (<200); Estimated Glomerular Filt Rate > 60; Glucose Fasting 165 mg/dL (60-99); HDL Cholesterol 35 mg/dL (>40); LDL Cholesterol Calculated 137 mg/dL (<100); Potassium 4.6 mmol/L (3.3-5.1); Sodium 136 mmol/L (135-145); Total Protein 7.6 g/dL (6.5-8.0); Triglycerides 156 mg/dL (<150)
[2024-08-12 09:40] LABS: Thyroid Stimulating Hormone 0.78 uIU/mL (0.32-4.0)
[2024-08-12 09:48] LABS: Creatinine Urine 206.58 mg/dL; Microalbum/Creatinine Ratio Ur 15.4 ug/mg cr (<30)
== END 2024-08-12 07:50 | disposition home or self-care (01) ==
LOC: HO.LAB 07:49
PROVIDERS: PCP Internal Medicine; Visit Provider Internal Medicine
DX: E11.9 Type 2 diabetes mellitus without complications (principal); E78.00 Pure hypercholesterolemia, unspecified; I10 Essential (primary) hypertension
CPT/HCPCS: 36415; 80053; 80061; 82043; 82570; 83036; 84443; 85025

== ENCOUNTER 2024-10-03 13:13 | Outpatient (REF) | payer OTHER, SELFPAY ==
--- NOTE | ~2024-10-03 | XR_ITS ---
CLINICAL HISTORY: M25.511 - Pain in right shoulder 4 view right shoulder Comparison: None Findings: No fractures or dislocations. No significant loss of joint space or osteophytes. No erosions. No radiopaque foreign body. Linear calcification adjacent to the greater tuberosity of the humerus, compatible with calcific tendinitis of the rotator cuff. IMPRESSION: Linear calcification adjacent to the greater tuberosity of the humerus, compatible with calcific tendinitis of the rotator cuff. This document has been electronically signed by: Rebecca Balderrama MD on 10/04/2024 14:51:53
--- NOTE | ~2024-10-03 | XR_ITS ---
CLINICAL HISTORY: G25.89 - Other specified extrapyramidal and movement disorders 5 views cervical spine Comparison: None Findings: Appropriate alignment. Straightening of lordosis is present. No acute fractures or dislocation. No significant degenerative change. Prevertebral soft tissues within normal limits. IMPRESSION: There is straightening of lordosis suggesting muscle spasm. This document has been electronically signed by: Rebecca Balderrama MD on 10/04/2024 14:52:45
== END 2024-10-03 13:14 | disposition home or self-care (01) ==
LOC: HO.XRAY 13:13
PROVIDERS: PCP Internal Medicine; Visit Provider Nurse Practitioner Family
DX: M25.511 Pain in right shoulder (principal); G25.89 Other specified extrapyramidal and movement disorders; M54.12 Radiculopathy, cervical region
CPT/HCPCS: 72050; 73030

== ENCOUNTER 2024-10-03 13:13 | Outpatient (AMB) | payer OTHER, SELFPAY ==
--- NOTE | 2024-10-03 13:18 | A.OFFVIS_ITS ---
Vital Signs 10/03/24 13:22 Height 5 ft Weight 144 lb 2 oz BMI 28.1 BP 125/64 Blood Pressure Location Lt brachial Position Sitting Pulse 76 Pulse Source Pulse Oximeter Intake Visit Reasons: Radiculopathy, cervical region Intake Note: Pain today 02/04 Special Needs Librarian Required: No Accompanied by: Self / Same As Patient Allergies Penicillins [PENICILLINS] Allergy (Intermediate, Verified 10/03/24 13:21) rash Medication List - Last Reconciled 10/03/24 by FUNMILAYO Pandey diclofenac sodium 1% (Arthritis Pain (diclofenac)) 4 grams topical QID 30 days fluconazole 150 mg PO QWEEK fluticasone propionate 50 mcg/actuation 1 spray intranasal BID PRN glipizide 2.5 mg PO DAILY labetalol 100 mg PO BID lisinopril 5 mg PO DAILY naproxen 500 mg PO BID PRN norethindrone acetate 5 mg PO DAILY HPI HPI Radiculopathy, cervical region: Details: Patient is a 49 years old female with history of chronic right shoulder pain, cervical radiculopathy and scapular dyskinesis, diabetes (A1C=7.8), presents today for initial evaluation of right shoulder pain with radiation into right upper extremity. Denies any recent or past trauma, injury or falls. She received cortisone injection for right shoulder pain 2 years ago with good relief until recent reoccurrence of right shoulder pain and right thumb numbness in July 2024 without any inciting events. She has pending Neurodiagnotic studies for right upper extremity numbness and tingling and has been referred to our office for evaluation of cervical radiculopathy. Patient denies any neck symptoms today. She presents with full range of motion of cervical and thoracolumbar spine without myelopathy or radicular findings on exam. Patient does have muscle tenderness in the trapezius areas, worse on the right. Right shoudler xray in 2021 showed minimal glenohumeral arthrosis. Normal cervical spine xray as of 2014. 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 To this point, she has not done any physical or chiropractic therapy, massage, ac upuncture, Tylenol or NSAIDs, heat or cold therapies. She prefers to avoid medications. Pain affects her daily activities and functioning, ADLs, lifting, house chores, work, sleep, and quality of life. Patient cannot lift anything over 2-5 lbs due to significant right shoulder pain. Reports mild relief with Biofreeze. Patient denies previous spine injections or surgery. Denies any fever or chills, headaches, shortness of breaths, chest pain, weakness, gait imbalances, locking or popping sensations, bladder or bowel dysfunction or saddle anesthesia. Location: Right shoulder radiates to right hand/right thumb Duration: Chronic pain, worsening for past 2 months Characteristics of symptom or complaint: It just hurts aching, numbness/tingling right thumb, sore, dull, hurting Aggravating or associated factors: Lifting, movement, pulling, ROM, cold weather, computer work Relieving factors: Biofreeze, activity modifications Treatment: Injections in 2021 with good relief [facility] Medical History (Updated 10/03/24 @ 14:49 by FUNMILAYO Pandey) Arthritis of right glenohumeral joint Shoulder pain, right PONV (postoperative nausea and vomiting) Hx of infertility History of blood transfusion Yeast infection Diabetes HTN (hypertension) Surgical History Tubal ligation status Hx of abdominoplasty Social History Are you a primary primary care sales representative to a significant other at home: Yes (children, supportive ) Do you presently have visiting nurse or other home services: No Patient Tobacco Use Status: Former Tobacco user Tobacco use type: Cigarette Review of Systems Const All systems reviewed & are unremarkable except as noted in HPI and below Physical Exam Vital Signs: Last Vital Signs Pulse 76 10/03/24 13:22 BP 125/64 10/03/24 13:22 BMI result Body Mass Index 28.1 General: Appears afebrile. Alert and oriented. Mood and affect appropriate. Follows and participates in conversation appropriately. Respiratory effort is unlabored. No cough. No nasal discharge. Able to transition from sit to stand unassisted. Ambulates with bilaterally normal heel strike and toe off. Neck Other: Full cervical spine ROM without pain. Reports no pain with cervical extension or flexion. Spurling compression test is negative. Pain is unchanged by Spurling maneuver with retraction. Elvey's tension test is negative.Lhermitte's test was negative. DTR intact, +2 and symmetrical. Patient demonstrated 5/5 motor strength of bilateral upper extremities. 2 + radial pulses. Significant tightness throughout right upper trapezius as well as TTP throughout bilateral upper trapezius muscles. No paravertebral tenderness over facet joints bilaterally. Multiple taut bands palpated throughout bilateral upper trapezius muscles. Neck: Yes normal visual inspection, Yes full ROM, Yes no lymphadenopathy, Yes supple, No anterior neck swelling, Yes no JVD and Yes prominent dorsocervical fat pad Back/Spine/Pelvis Cervical Spine: normal cervical lordosis, cervical ROM normal, cervical muscular tenderness (right), No pain with cervical ROM, No Cervical spine scars present, cervical spasm (right), No Cervical spine tenderness and No step off deformity Thoracic/Lumbar Spine: thoracic and lumbar spine normal to inspection, thoraco- lumbar ROM normal, No thoracic spinal tenderness and No lumbar spinal tenderness Extrem General: Yes capillary refill normal, Yes no clubbing, cyanosis or edema and Yes no calf tenderness Right upper extremity: shoulder/upper arm (Limited ROM, increased pain with right internal rotation. +Painful arc) Details: normal to inspection, tenderness Location: of the A-C joint and over the subacromial bursa and normal ROM; no ecchymosis, no crepitus and no unusual warmth Results Reviewed Results Reviewed: XR CERVICAL SPINE 09/17/2015 CLINICAL INFORMATION: 40-year-old woman with neck pain. COMPARISON: None. TECHNIQUE: 6 views of the cervical spine were obtained. FINDINGS: There is no evidence of acute cervical spine fracture. Vertebral bodies are normal in height, intervertebral disc spaces are preserved, and alignment is anatomic. No prevertebral soft tissue swelling is visible. There is no significant bony foraminal stenosis on either side. IMPRESSION: Unremarkable radiographic appearance of the cervical spine. XR SHOULDER, RIGHT 01/03/22 CLINICAL INFORMATION: Pain. Evaluate for spurs. Rheumatoid arthritis. COMPARISON: None. TECHNIQUE: AP external rotation, Grashey, scapular Y, and axillary views of the right shoulder. FINDINGS: No acute fracture or dislocation. Mild glenohumeral joint space narrowing with tiny inferior marginal osteophytes. No osseous erosion. No abnormal soft tissue calcification. IMPRESSION: Minimal glenohumeral arthrosis. Assessment & Plan Assessment & Plan (1) Shoulder pain, right: Code(s): M25.511 - Pain in right shoulder Category: Medical (2) Scapular dyskinesis: Code(s): G25.89 - Other specified extrapyramidal and movement disorders Category: Medical (3) Shoulder pain, right: Code(s): M25.511 - Pain in right shoulder Category: Medical (4) Osteoarthritis of right shoulder: Code(s): M19.011 - Primary osteoarthritis, right shoulder Category: Medical (5) Muscle spasms of neck: Code(s): M62.838 - Other muscle spasm Category: Medical Plan Will update cervical spine and right shoulder imaging to assess degree of degenerative changes, any subluxation, listhesis, compression fractures or pars defects. Patient has pending EMG and NVC studies to be scheduled, ordered by Orthopedics on 09/30/23. If normal, will consider right shoulder MRI. Recommend formal physical therapy and home exercise program for shoulder pain and neck muscle spasms. Script provided today. Scripts provided for diclofenac gel and naproxen prn for symptomatic relief. Side effects and precautions were discussed with patient. Encouraged good posture, adequate hydration, gentle stretching exercises, cold and heat therapy, elevation, activity modifications and rest as needed. All questions and concerns have been answered and patient agreed with the t reatment plan. Follow up for xray results and sooner as needed. Orders: Orders XR cervical spine 4V Today G25.89 - Other specified extrapyramidal and movement disorders, M54.12 - Radiculopathy, cervical region XR shoulder RT min 2V Today M25.511 - Pain in right shoulder PT Evaluation and Treatment Today G25.89 - Other specified extrapyramidal and movement disorders, M19.011 - Primary osteoarthritis, right shoulder, M25.511 - Pain in right shoulder, M54.12 - Radiculopathy, cervical region Medications: New diclofenac sodium 1% (Arthritis Pain (diclofenac)) 4 grams topical QID 100 grams 0RF pain 30 days M19.011 - Primary osteoarthritis, right shoulder, M25.511 - Pain in right shoulder naproxen Take it with food and full glass of water. 500 mg PO BID PRN 60 tabs 0RF pain M19.011 - Primary osteoarthritis, right shoulder, M25.511 - Pain in right shoulder Coding Level of Care Code New Pt Level 4 (16186) Complex EM visit Add On G2211 Diagnoses Shoulder pain, right M25.511 Scapular dyskinesis G25.89 Osteoarthritis of right shoulder M19.011 Muscle spasms of neck M62.838
[2024-10-03 13:22] VITALS: BP 125/64; PULSE 76; BMI 28.1
== END 2024-10-03 13:57 | disposition home or self-care (01) ==
PROVIDERS: PCP Internal Medicine; Visit Provider Nurse Practitioner Family
DX: M25.511 Pain in right shoulder (principal); G25.89 Other specified extrapyramidal and movement disorders; M19.011 Primary osteoarthritis, right shoulder; M62.838 Other muscle spasm
CPT/HCPCS: 99204

== ENCOUNTER → 2024-10-03 14:22 | Outpatient (BNV) | payer OTHER, SELFPAY | PROVIDERS: PCP Internal Medicine; Visit Provider Radiology Diagnostic Radiology | DX: M75.31 Calcific tendinitis of right shoulder (principal); G25.89 Other specified extrapyramidal and movement disorders | CPT/HCPCS: 72050; 73030 ==

== ENCOUNTER 2024-10-11 15:21 | Outpatient (AMB) | payer OTHER, SELFPAY ==
--- NOTE | 2024-10-11 15:29 | MHC.OFFVIS ---
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 She continues to endorse right shoulder pain especially with overhead activities, showering, combing and fixing her hair, difficulty with putting bra on, lifting, or pulling. She avoids sleeping on her right side due to pain. Her neck xray showed straightening of lordosis suggesting muscle spasms and right shoulder xray revealed linear calcification adjacent to the greater tuberosity of the humerus, compatible with calcific tendinitis of the rotator cuff. Patient is scheduled for EMG testing tomorrow for right thumb numbness. She is interested to undergo fluoroscopy guided right shoulder therapeutic injection. Denies any recent cough, cold, infection, fever or other significant changes in medical history since last office visit. PRIOR: Patient is a 49 years old female with history of chronic right shoulder pain, cervical radiculopathy and scapular dyskinesis, diabetes (A1C=7.8), presents today for initial evaluation of right shoulder pain with radiation into right upper extremity. Denies any recent or past trauma, injury or falls. She received cortisone injection for right shoulder pain 2 years ago with good relief until recent reoccurrence of right shoulder pain and right thumb numbness in July 2024 without any inciting events. She has pending Neurodiagnotic studies for right upper extremity numbness and tingling and has been referred to our office for evaluation of cervical radiculopathy. Patient denies any neck symptoms today. She presents with full range of motion of cervical and thoracolumbar spine without myelopathy or radicular findings on exam. Patient does have muscle tenderness in the trapezius areas, worse on the right. Right shoudler xray in 2021 showed minimal glenohumeral arthrosis. Normal cervical spine xray as of 2014. 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 To this point, she has not done any physical or chiropractic therapy, massage, acupuncture, Tylenol or NSAIDs, heat or cold therapies. She prefers to avoid medications. Pain affects her daily activities and functioning, ADLs, lifting, house chores, work, sleep, and quality of life. Patient cannot lift anything over 2-5 lbs due to significant right shoulder pain. Reports mild relief with Biofreeze. Patient denies previous spine injections or surgery. Denies any fever or chills, headaches, shortness of breaths, chest pain, weakness, gait imbalances, locking or popping sensations, bladder or bowel dysfunction or saddle anesthesia. Location: Right shoulder radiates to right hand/right thumb Duration: Chronic pain, worsening for past 2 months Characteristics of symptom or complaint: It just hurts aching, numbness/tingling right thumb, sore, dull, hurting Aggravating or associated factors: Lifting, movement, pulling, ROM, cold weather, computer work Relieving factors: Biofreeze, activity modifications Treatment: Injections in 2021 with good relief PFSH Medical History Arthritis of right glenohumeral joint Shoulder pain, right PONV (postoperative nausea and vomiting) Hx of infertility History of blood transfusion Yeast infection Diabetes HTN (hypertension) Surgical History Tubal ligation status Hx of abdominoplasty Social History Are you a primary direct care staffer to a significant other at home: Yes (children, supportive ) Do you presently have visiting nurse or other home services: No Patient Tobacco Use Status: Former Tobacco user Tobacco use type: Cigarette Review of Systems Const All systems reviewed & are unremarkable except as noted in HPI and below Physical Exam Vital Signs: Last Vital Signs Pulse 66 10/11/24 15:32 BP 135/75 10/11/24 15:32 Pulse Ox 98 10/11/24 15:32 Oxygen Delivery Method Room Air 10/11/24 15:32 BMI result Body Mass Index 28.3 General: Appears afebrile. Alert and oriented. Mood and affect appropriate. Follows and participates in conversation appropriately. Respiratory effort is unlabored. No cough. Able to transition from sit to stand unassisted. Ambulates with bilaterally normal heel strike and toe off. Neck Neck: Yes normal visual inspection, Yes full ROM, Yes no lymphadenopathy, Yes supple, No anterior neck swelling, Yes no JVD and Yes prominent dorsocervical fat pad Back/Spine/Pelvis Cervical Spine: cervical ROM normal, loss of normal cervical lordosis, cervical muscular tenderness (right), No pain with cervical ROM, No Cervical spine scars present, No Cervical spine tenderness and No step off deformity Extrem Right upper extremity: shoulder/upper arm (Limited ROM, increased pain with right internal rotation. +Painful arc) Details: normal to inspection, tenderness Location: of the A-C joint, of the mid-shaft humerus, over the subacromial bursa and over the deltoid bursa and normal ROM; no ecchymosis, no crepitus and no unusual warmth Results Reviewed Results Reviewed: XR SHOULDER, RIGHT 01/03/22 CLINICAL INFORMATION: Pain. Evaluate for spurs. Rheumatoid arthritis. COMPARISON: None. TECHNIQUE: AP external rotation, Grashey, scapular Y, and axillary views of the right shoulder. FINDINGS: No acute fracture or dislocation. Mild glenohumeral joint space narrowing with tiny inferior marginal osteophytes. No osseous erosion. No abnormal soft tissue calcification. IMPRESSION: Minimal glenohumeral arthrosis. 5 views cervical spine 10/04/24 Comparison: None Findings: Appropriate alignment. Straightening of lordosis is present. No acute fractures or dislocation. No significant degenerative change. Prevertebral soft tissues within normal limits. IMPRESSION: There is straightening of lordosis suggesting muscle spasm. 4 view right shoulder 10/04/24 Comparison: None Findings: No fractures or dislocations. No significant loss of joint space or osteophytes. No erosions. No radiopaque foreign body. Linear calcification adjacent to the greater tuberosity of the humerus, compatible with calcific tendinitis of the rotator cuff. IMPRESSION: Linear calcification adjacent to the greater tuberosity of the humerus, compatible with calcific tendinitis of the rotator cuff. Assessment & Plan Assessment & Plan (1) Osteoarthritis of right shoulder: Code(s): M19.011 - Primary osteoarthritis, right shoulder Category: Medical (2) Calcific tendonitis of right shoulder: Code(s): M75.31 - Calcific tendinitis of right shoulder Category: Medical (3) Muscle spasms of neck: Code(s): M62.838 - Other muscle spasm Category: Medical (4) Shoulder pain, right: Code(s): M25.511 - Pain in right shoulder Category: Medical (5) Scapular dyskinesis: Code(s): G25.89 - Other specified extrapyramidal and movement disorders Category: Medical (6) Shoulder pain, right: Code(s): M25.511 - Pain in right shoulder Category: Medical Plan Cervical spine and right shoulder imaging results were discussed with patient today. Patient has pending EMG and NVC studies to be scheduled for tomorrow. Pending physical therapy for shoulder pain and neck muscle spasms. Script provided at previous visit. Patient would like to undergo Right shoulder intra-articular steroid injection with local and fluoroscopy guidance for pain prior to start of PT. Expectations, risks and benefits were reviewed. Patient is aware he will be contacted to schedule this procedure. Patient is aware of hyperglycemic effects of steroids. Continue diclofenac gel and naproxen prn, heat/cold therapy and activity modifications for symptomatic relief. All questions and concerns have been answered and patient agreed with the treatment plan. Follow up after injection and sooner as needed. Coding Level of Care Code Est Pt Level 4 (06078) Complex EM visit Add On G2211 Diagnoses Osteoarthritis of right shoulder M19.011 Calcific tendonitis of right shoulder M75.31 Muscle spasms of neck M62.838 Shoulder pain, right M25.511 Scapular dyskinesis G25.89
[2024-10-11 15:32] VITALS: BP 135/75; PULSE 66; O2SAT 98; BMI 28.3
== END 2024-10-11 15:46 | disposition home or self-care (01) ==
PROVIDERS: PCP Internal Medicine; Visit Provider Nurse Practitioner Family
DX: M19.011 Primary osteoarthritis, right shoulder (principal); M75.31 Calcific tendinitis of right shoulder; M62.838 Other muscle spasm; M25.511 Pain in right shoulder; G25.89 Other specified extrapyramidal and movement disorders
CPT/HCPCS: 99214

== ENCOUNTER → 2024-10-11 15:21 | Outpatient (BNVA) | payer OTHER, SELFPAY | PROVIDERS: PCP Internal Medicine; Visit Provider Nurse Practitioner Family ==

== ENCOUNTER → 2024-10-12 15:13 | Outpatient (BNV) | payer OTHER, SELFPAY | PROVIDERS: PCP Internal Medicine; Visit Provider Physical Medicine & Rehabilitation | DX: G56.01 Carpal tunnel syndrome, right upper limb (principal) | CPT/HCPCS: 95886; 95909 ==

== ENCOUNTER 2024-10-12 15:15 | Outpatient (REF) | payer OTHER, SELFPAY ==
--- NOTE | 2024-10-12 15:13 | EMG_ITS ---
Chief complaint: Right hand numbness Reason for referral: Evaluate for Carpal Tunnel Syndrome Referred by: Vu JOHNSON Procedure done: Right upper extremity NCS/EMG Precautions and/or limitations: None The limb temperature was monitored continuously and remained between 32-36 degrees C during the performance of the NCS. Nerve Conduction Studies Anti Sensory Summary Table ?Stim Site NR Onset (ms) Norm Onset (ms) Peak (ms) Norm Peak (ms) O-P Amp (?V) Norm O-P Amp Site1 Site2 Delta-0 (ms) Dist (cm) Felice (m/s) Norm Felice (m/s) Right Median Anti Sensory (2nd Digit) Wrist ? 3.6 4.7 <3.6 14.5 >10 Wrist 2nd Digit 3.6 14.0 39 Right Radial Anti Sensory (Thumb) Forearm ? 1.5 2.2 <3.1 33.8 Forearm Thumb 1.5 0.0 Right Ulnar Anti Sensory (5th Digit) Wrist ? 2.3 3.4 <3.7 51.3 >15.0 Wrist 5th Digit 2.3 14.0 61 Motor Summary Table ?Stim Site NR Onset (ms) Norm Onset (ms) O-P Amp (mV) Norm O-P Amp iAmp (mV) Amp (1st) (%) Site1 Site2 Delta-0 (ms) Dist (cm) Felice (m/s) Norm Felice (m/s) Right Median Motor (Abd Poll Brev) Wrist ? 5.2 <3.9 12.5 >4.5 16.2 100.0 Elbow Wrist 4.0 19.5 49 >45 Elbow ? 9.2 12.6 16.5 100.8 Right Ulnar Motor (Abd Dig Minimi) Wrist ? 2.7 <3.0 10.1 >5 12.8 100.0 B Elbow Wrist 2.8 17.0 61 >45 B Elbow ? 5.5 9.5 12.3 94.1 A Elbow B Elbow 1.1 10.0 91 >45 A Elbow ? 6.6 9.2 12.0 91.1 EMG ?Side Muscle Nerve Root Ins Act Fibs Psw Amp Dur Poly Recrt Int Pat Comment Right 1stDorInt Ulnar C8-T1 Nml Nml Nml Nml Nml 0 Nml Complete Right FlexCarRad Median C6-7 Nml Nml Nml Nml Nml 0 Nml Complete Right Biceps Musculocut C5-6 Nml Nml Nml Nml Nml 0 Nml Complete Right Triceps Radial C6-7-8 Nml Nml Nml Nml Nml 0 Nml Complete Right Deltoid Axillary C5-6 Nml Nml Nml Nml Nml 0 Nml Complete FINDINGS: Right median motor nerve showed prolonged distal latency, normal amplitude and normal conduction velocity. Right median sensory nerve showed prolonged peak latency. All other nerves tested were within normal. Concentric needle EMG was performed in selected muscles of the right upper extremity. Study did not reveal signs of electric abnormalities as shown in the table above. IMPRESSION: 1. This is an abnormal study. 2. 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 3. There is no electrodiagnostic evidence for ulnar neuropathy, brachial plexopathy, or cervical radiculopathy. Thank you for your kind referral. Ora Avelar MD, ROSENDO Board Certified, [place] Board of Physical Medicine and Rehabilitation (ABPMR) Board Certified, [place] Board of Electrodiagnostic Medicine (ABEM) CODIN [id number] [facility]
== END 2024-10-12 15:16 | disposition home or self-care (01) ==
LOC: HO.NEURO 15:15
PROVIDERS: PCP Internal Medicine
DX: R20.0 Anesthesia of skin (principal); R20.2 Paresthesia of skin
CPT/HCPCS: 95886; 95909

== ENCOUNTER 2024-10-17 11:30 | Outpatient (AMB) | payer OTHER, SELFPAY ==
--- NOTE | 2024-10-17 11:32 | A.OFFVIS_ITS ---
Vital Signs 10/17/24 11:34 Height 5 ft Weight 145 lb BMI 28.3 BP 120/62 Blood Pressure Location Lt brachial Position Sitting Respiration 15 Pulse 84 Pulse Source Pulse Oximeter Pulse Oximetry (%) 97 Oxygen Delivery Method Room Air Intake Visit Reasons: Right shoulder injection Allergies Penicillins [PENICILLINS] Allergy (Intermediate, Verified 10/21/24 09:06) rash Medication List - Last Reconciled 10/17/24 by Flores Persaud LPN diclofenac sodium 1% (Arthritis Pain (diclofenac)) 4 grams topical QID 30 days fluticasone propionate 50 mcg/actuation 1 spray intranasal BID PRN glipizide 2.5 mg PO DAILY labetalol 100 mg PO BID lisinopril 5 mg PO DAILY naproxen 500 mg PO BID PRN norethindrone acetate 5 mg PO DAILY HPI HPI Right shoulder injection: Details: History of Present Illness The patient is a 49-year-old female presenting with right shoulder pain requiring injection. An X-ray of the right shoulder in 2024 demonstrated calcific tendinosis of the rotator cuff. The patient reports that she was fine until the age of 45 when she began experiencing limitations in shoulder mobility, specifically difficulty with movements above her head. The shoulder pain has progressive characteristics with evident functional limitations. The patient previously received an injection with positive results. Pain Description - Onset and timing: Began at age 45 - Quality and character: Aching pain associated with movements - Primary location: Right shoulder - Exacerbating factors: Movement, particularly above the head - Relieving factors: Previous injection noted improvement Physical Exam - Musculoskeletal- Limited range of motion in the right shoulder, especially with overhead movements. Results - Imaging: X-ray of the right shoulder in 2024 showed calcific tendinosis of the rotator cuff. Pain Management - Affect: Pain impacts shoulder function and mobility. - Analgesia: Previous injection provided relief; current pain level not explicitly stated. - Adverse Effects: None reported. - Activities of Daily Living: Interferes with lifting the arm above the head. - Aberrant Drug Related Behaviors: None reported. Patient was informed and verbally consented to the use of an ambient scribe for clinic note documentation during this visit. Subacromial bursa injection, USG, RIGHT Informed consent was obtained prior to the procedure. I performed a time-out and confirmed the injection site with the patient. Under sterile conditions, a 25- gauge, 1.5-inch needle was advanced into the right subacromial bursa using ultrasound guidance. I injected 40 mg of Kenalog mixed with 3ml 0.25% ropivacaine. The image of the injection was saved for the patient's records. The patient was advised to follow up as needed. Patient Instructions - Monitor for any adverse reactions at the injection site. - Avoid heavy lifting or strenuous activities with the right shoulder for a few days. - Schedule a follow-up appointment if there is no significant improvement or if symptoms worsen. PFSH Medical History Arthritis of right glenohumeral joint Shoulder pain, right PONV (postoperative nausea and vomiting) Hx of infertility History of blood transfusion Yeast infection Diabetes HTN (hypertension) Surgical History Tubal ligation status Hx of abdominoplasty Social History Are you a primary health care sanitary technician to a significant other at home: Yes (children, supportive ) Do you presently have visiting nurse or other home services: No Patient Tobacco Use Status: Former Tobacco user Tobacco use type: Cigarette Physical Exam Vital Signs: Last Vital Signs Pulse 84 10/17/24 11:34 Resp 15 10/17/24 11:34 BP 120/62 10/17/24 11:34 Pulse Ox 97 10/17/24 11:34 Oxygen Delivery Method Room Air 10/17/24 11:34 BMI result Body Mass Index 28.3 Assessment & Plan Assessment & Plan (1) Calcific tendonitis of right shoulder: Code(s): M75.31 - Calcific tendinitis of right shoulder Category: Medical Plan: . Coding Level of Care Code Procedure Only Diagnoses Calcific tendonitis of right shoulder M75.31
[2024-10-17 11:34] VITALS: BP 120/62; PULSE 84; RESP 15; O2SAT 97; BMI 28.3
== END 2024-10-17 11:55 | disposition home or self-care (01) ==
PROVIDERS: PCP Internal Medicine; Visit Provider Internal Medicine
DX: M75.31 Calcific tendinitis of right shoulder (principal)
CPT/HCPCS: 20611

== ENCOUNTER → 2024-10-17 11:30 | Outpatient (BNVA) | payer OTHER, SELFPAY | PROVIDERS: PCP Internal Medicine; Visit Provider Internal Medicine | DX: M75.31 Calcific tendinitis of right shoulder (principal) | CPT/HCPCS: 20611; J2795; J3301 ==

== ENCOUNTER 2024-12-05 15:43 | Outpatient (REF) | payer OTHER, SELFPAY ==
--- OUTSIDE RECORDS SUMMARY | 2024-12-05 17:46 | XMS_ITS | Patient Health Record ---
Author Organization [facility] Address [address] [place] [address] Care Team Providers Care Mortgage Counselor Name Role Phone Kalin Peña MD Primary Care Provider Isaak Winslow [phone] Allergies Allergen (clinical drug ingredient) Drug/Non Drug Allergy documented on EMR Reaction Allergy Type Onset Date Status Penicillin Unknown Drug Allergy Active Results Component Value Reference Range Notes Glucose, Whole Blood Reviewed date:02/26/2024 04:37:09 PM Interpretation: Performing Lab:[facility], [address] [place] [phone] Notes/Report: Glucose, Whole Blood 134 60-115 mg/dL METER # : [id number] Reason For Referral No Information Medications Medication SIG (Take, Route, Frequency, Duration) Notes Start Date End Date Status Norethindrone Acetate 5 MG TAKE 1 TABLET BY MOUTH EVERY DAY Oral for 90 Active Jardiance 10 MG TAKE 1 TABLET BY FLOR TH EVERY DAY Oral for 30 Active Labetalol HCl 100 MG Oral for 90 Active Social History Tobacco Use: Social History Observation Description Date Details (start date - stop date) Former Smoker NA - NA Tobacco Use/Smoking Question Answer Notes Patient is [...] Never (0 point) Points 1 Interpretation Negative Section Notes: Nonsmoker; no sig alcohol Problems Problem Type SNOMED Code ICD Code Onset Dates Problem Status W/U Status Risk Notes Problem Colon cancer screening (909815642) Colon cancer screening (Z12.11) Active confirmed Problem Pre-procedure evaluation check (208450013) Encounter for other preprocedural examination (Z01.818) Active confirmed Problem Diverticular disease of colon (030863084) Diverticulosis of large intestine without perforation or abscess without bleeding (K57.30) Active confirmed Encounters Encounter Location Date Provider Diagnosis [facility] [place] [address] [place] [phone] 02/26/2024 Isaak Gonzalez Encounter for scre ening colonoscopy Z12.11 ; Diverticulosis of large intestine without perforation or abscess without bleeding K57.30 and Other hemorrhoids K64.8 Assessments Encounter Date Diagnosis (ICD Code) Assessment Notes Treatment Notes Treatment Clinical Notes Section Notes 02/26/2024 Encounter for screening colonoscopy (ICD-10 - Z12.11) 02/26/2024 Diverticulosis of large intestine without perforation or abscess without bleeding (ICD-10 - K57.30) 02/26/2024 Other hemorrhoids (ICD-10 - K64.8) Plan Of Treatment Future Test Test Name Order Date COLONOSCOPY 11/26/2023 Insurance Providers Payer Name Payer Address Payer Phone Subscriber Number Group Number Insured Name Patient Relationship to Insured Coverage Start Date Coverage End Date [facility] [employer] [address] [place] [address] [id number] KRISTA CHOPRA Self - patient is the insured Medical (General) History Medical History History ICD Code Hypertension NIDDM Denies OH,DM,CVA,Lung disease,renal dise ase Surgical History Surgery Date(Month/Year) Abdominoplasty 04/18
--- OUTSIDE RECORDS SUMMARY | 2024-12-05 17:46 | XMS_ITS ---
Author Organization [facility] Address [address] [place] [address] Care Team Providers Care Industrial Machine System Technician Name Role Phone Kalin Peña MD Primary Care Provider Isaak Winslow Unavailable [phone] Allergies Allergen (clinical drug ingredient) Drug/Non Drug Allergy documented on EMR Reaction Allergy Type Onset Date Status Penicillin Unknown Drug Allergy Active REASON FOR VISIT Patient presents today for discuss colonoscopy Medications Medication SIG (Take, Route, Frequency, Duration) [...] Status Risk Notes Problem Colon cancer screening (916083537) Colon cancer screening (Z12.11) Active confirmed Problem Pre-procedure evaluation check (648752235) Encounter for other preprocedural examination (Z01.818) Active confirmed Vital Signs Temperature 97.7 degrees Fahrenheit 11/26/19 24 Blood pressure systolic 00 mm Hg 11/26/19 24 Blood pressure diastolic 00 mm Hg 024 Height 5 ft 0 in in 11/26/2023 Weight 135 lbs 11/26/2023 BMI 26.36 kg/m2 11/26/2023 Encounters Encounter Location Date Provider Diagnosis [facility] [address] [place] [address] 11/26/2023 Isaak Gonzalez Colon cancer screeni ng Z12.11 and Encounter for other preprocedural examination Z01.818 Assessments Encounter Date Diagnosis (ICD Code) Assessment Notes Treatment Notes Treatment Clinical Notes Section Notes 11/26/2023 Colon cancer screening (ICD-10 - Z12.11) STOP JARDIANCE FOR A COMPLETE THREE DAYS BEFORE THE COLONOSCOPY Overall, Chio appears quite well. Given her age and excellent clinical appearance, I did recommend a colonoscopy for screening purposes. We did review the rationale for that regard to colorectal cancer prevention. Full consent was obtained for this, including risks of bleeding and perforation. The procedure will be done with monitored anesthesia care. She was given the below instructions regarding adjustment of her diabetes medication as per current anesthesia guidelines. Chio was comfortable with this plan. Thank you again for allowing me to participate in Chio's care. I shall continue to keep you advised of her progress. 11/26/2023 Encounter for other preprocedural examination (ICD-10 - Z01.818) Overall, Chio appears quite well. Given her age and excellent clinical appearance, I did recommend a colonoscopy for screening purposes. We did review the rationale for that regard to colorectal cancer prevention. Full consent was obtained for this, including risks of bleeding and perforation. The procedure will be done with monitored anesthesia care. She was given the below instructions regarding adjustment of her diabetes medication as per current anesthesia guidelines. Chio was comfortable with this plan. Thank you again for allowing me to participate in Chio's care. I shall continue to keep you advised of her progress. Plan Of Treatment Treatment Notes Assessment Notes Colon cancer screening STOP JARDIANCE FO R A COMPLETE THREE DAYS BEFORE THE COLONOSCOPY Future Test Test Name Order Date COLONOSCOPY 11/26/2023 Next Appt Details Follow Up: prn, Reason: Progress Notes * CHIO CHOPRADOB: 5 (48 yo F)Acc No.[id number]:11/26/2023 Progress Notes Patient:?CHIO CHOPRA Provider:?Isaak Gonzalez MD :1975???Age:48 Y???Sex:Female D ate:11/26/2023 Address:[address] [place], [place] [id number] Pcp:Kalin Peña MD Subjective: * Chief Complaints: * ???Patient presents today fo r discuss colonoscopy * HPI: ???incontinence:? I saw Chio in the office today in regard to colorectal cancer screening. ?As you know, Chio is a 48-year-old female who presently feels her well. She enjoys a good appetite, without any significant heartburn or dysphagia. Her bowel movements have been regular, without any hematochezia nor melena. She denies abdominal pain, jaundice, nor weight loss. She denies any known family history of colon cancer. She has never had a colonoscopy. * ROS:?General/Constitutional:?Change in appetite?denies.?Chills?denies.?Fatigue?denies.?Ophthalmologic:?Comments?all negative.?ENT:?Comments?all negative.?Respiratory:?hemoptysis?denies.?Cough?denies.?Cardiovascular:?Chest pain?denies.?Orthopnea?denies.?Gastrointestinal:?Comments?See HPI for details.?Genitourinary:?Hematuria?denies.?Dysuria?denies.?Musculoskeletal:?Painful joints?denies.?Weakness?denies.?Skin:?Itching?denies.?Rash?denies.?Neurologic:?Headache?denies.?Seizures?denies.?Psychiatric:?Comments?all negative.? * Medical History:? * Surgical History:?Abdominopl asty 04/18 * Hospitalization/Major Diagno stic Procedure:?No Hospitalization History. * Family History:?Father: kathi dumont, diagnosed with Diabetes.?Mother: alive, diagnosed with Diabetes.? brother celiacs no known hx of colon ca. * Social History:?Tobacco Use:?Tobacco Use/Smoking?Patient is a?former smoker,?How long has it been since you last smoked??> 10 years.?Drugs/Alcohol:?Alcohol Screen?Did you have a drink containing alcohol in the past year??Yes,?How often did you have a drink containing alcohol in the past year??Monthly or less (1 point), How many drinks did you have on a typical day when you were drinking in the past year??1 or 2 drinks (0 point),?How often did you have 6 or more drinks on one occasion in the past year??Never (0 point),?Points?1,?Interpretation?Negative.?Miscellaneous:?Marital status: . Occupation: [employer] at a [employer]. ???Nonsmoker; no sig alcohol. * Medications:?TakingJardiance 10 MG Tablet TAKE 1 TABLET BY MOUTH EVERY DAY Oral Norethindrone Acetate 5 MG Tablet TAKE 1 TABLET BY MOUTH EVERY DAY Oral Labetalol HCl 100 MG Tablet Oral Medication List reviewed and reconciled with the patientTaking Jardiance 10 MG Tablet TAKE 1 TABLET BY MOUTH EVERY DAY Oral Taking Norethindrone Acetate 5 MG Tablet TAKE 1 TABLET BY MOUTH EVERY DAY Oral Taking Labetalol HCl 100 MG Tablet Oral Medication List reviewed and reconciled with the patient * Allergies:?Penicillinyes[All ergies Verified] Objective: * Vitals:?Wt: 135 lbs, Ht: 5 f t 0 in, BMI:26.36 Index, BP: 00/00 mm Hg, Temp: 97.7. * Examination: ???General Examination: ?GENERAL APPEARANCE:?pleasant, well nourished, well developed, in no acute distress.?EYES:?sclera non-icteric.?ORAL CAVITY:?mucosa moist.?NECK/THYROID:?no cervical lymphadenopathy, neck supple.?SKIN:?nonjaundiced, no spider angiomata.?HEART:?S1, S2 normal.?LUNGS:?clear to auscultation bilaterally.?ABDOMEN:?normal bowel sounds, no guarding or rigidity, no guarding or rigidity, no masses palpable, soft, nontender, nondistended.?EXTREMITIES:?no edema.?NEUROLOGIC:?alert and oriented.? Assessment: * Assessment: 1.?Encounter for other prepr ocedural examination - Z01.818 (Primary)?2.?Colon cancer screening - Z12.11? Overall, Chio appears flako te well. Given her age and excellent clinical appearance, I did recommend a colonoscopy for screening purposes. We did review the rationale for that regard to colorectal cancer prevention. Full consent was obtained for this, including risks of bleeding and perforation. The procedure will be done with monitored anesthesia care. She was given the below instructions regarding adjustment of her diabetes medication as per current anesthesia guidelines. Chio was comfortable with this plan. Thank you again for allowing me to participate in Chio's care. I shall continue to keep you advised of her progress. Plan: * Treatment: Notes: STOP JARDIANCE FOR A COMPLETE THREE DAYS BEFORE THE COLONOSCOPY?? * Procedure Codes:?3017F COLOR ECTAL CA SCREEN DOC [id number] TOBACCO NON-[id number] BP SCR NOT PRFRM REC REASON NOS * Preventive Medicine:? ??Counseling:?Care goal follow-up plan:?Above Normal BMI Follow-up?Giving encouragement to exercise,?BMI management provided?Yes.? * Follow Up:?prn * * Sign off status: Completed true * Provider:?Isaak Gonzalez MD Date:? 024 Generated for Francheska rogers/Karissa/eTransmitting on:?12/05/2024 05:46 PM EDT History and Physical Notes * HPI (History of Present Illness) Category Sub-Category Detail Notes Category Not es incontinence I saw Chio in the office today in regard to colorectal cancer screening. As you know, Chio is a 48-year-old female who presently feels her well. She enjoys a good appetite, without any significant heartburn or dysphagia. Her bowel movements have been regular, without any hematochezia nor melena. She denies abdominal pain, jaundice, nor weight loss. She denies any known family history of colon cancer. She has never had a colonoscopy. Examination Category Sub-Category Detail Notes Category Not es General Examination GENERAL APPEARANCE: pleasant , well [...]
--- OUTSIDE RECORDS SUMMARY | 2024-12-05 17:46 | XMS_ITS ---
Author Organization [facility] Address [address] [place] [address] Care Team Providers Care Special Events Assistant Name Role Phone Kalin Peña MD Primary Care Provider Isaak Winslow [phone] REASON FOR VISIT screening Problems Problem Type SNOMED Code ICD Code Onset Dates Problem Status W/U Status Risk Notes Problem Diverticular disease of colon (918881431) Diverticulosis of large intestine without perforation or abscess without bleeding (K57.30) Active confirmed Encounters Encounter Location Date Provider Diagnosis [facility] [place] [address] [place] [phone] 02/26/2024 Isaak Gonzalez Encounter for scre ening [...] hemorrhoids (ICD-10 - K64.8) Plan Of Treatment No Information Progress Notes * CHOPRAKRISTADOB: 5 (49 yo F)Acc No.[id number]:02/26/2024 COLON WITH MAC Patient:?KRISTA CHOPRA Provider:?Isaak Gonzalez MD :1975???Age:48 Y???Sex:Female D ate:02/26/2024 Address:[address] [place] [address] [place], [id number] Pcp:Kalin Peña MD Subjective: * Chief Complaints: * ???1. Screening. * Medical History:? Objective: * Vitals:? Assessment: * Assessment: 1.?Encounter for screening c olonoscopy - Z12.11 (Primary)???2.?Diverticulosis of large intestine without perforation or abscess without bleeding - K57.30???3.?Other hemorrhoids - K64.8??? Plan: * Treatment: * Procedure Codes:?23166 DIAGN OSTIC COLONOSCOPY * * The named appointment provid er may or may not be the originator of this progress note, and it is not deemed complete until electronically signed by the appointment provider. Sign off status: Pending * Provider:?Isaak Gonzalez MD Date:? 024 Generated for Francheska rogers/Karissa/Rajani on:?12/05/2024 05:46 PM EDT
--- OUTSIDE RECORDS SUMMARY | 2024-12-05 17:46 | XMS_ITS | Continuity of Care Document ---
Author Organization [facility] [address] [facility] [address] [place] [address] Phone [phone] Care Team Providers Care Office Machines Teacher Name Role Phone Kalin Peña M.D. Care Team Information Receiv er [phone] Social History Type Date Description Comments Sex Unknown Medical Devices Description No Information Available Encounters Description No Information Available Assessments Description No Information Available Plan of Treatment Future Appointment(s):* 01/13/2025 9:15 am - [facility] at Main Office Functional Status Description No Information Available Mental Status Description No Information Available Referrals Description No Information Available
== END 2024-12-05 15:44 | disposition home or self-care (01) ==
LOC: HO.MAMMO 15:43
PROVIDERS: Absent Provider Student in an Organized Health Care Education/Training Program; PCP Internal Medicine; Visit Provider Internal Medicine
DX: Z12.31 Encounter for screening mammogram for malignant neoplasm of breast (principal)
CPT/HCPCS: 77063; 77067

== ENCOUNTER → 2024-12-05 16:00 | Outpatient (BNV) | payer OTHER, SELFPAY | PROVIDERS: Absent Provider Student in an Organized Health Care Education/Training Program; PCP Internal Medicine; Visit Provider Internal Medicine | DX: Z12.31 Encounter for screening mammogram for malignant neoplasm of breast (principal) | CPT/HCPCS: 77063; 77067 ==

== ENCOUNTER 2024-12-30 07:00 | Outpatient (REF) | payer OTHER, SELFPAY ==
[2024-12-30 07:50] LABS: Estimated Average Glucose 177 mg/dL; Hemoglobin A1C 219.2322 umol/L; Hemoglobin A1c % 7.8 % (<6.0); Total Hemoglobin (HGBA1C) 3525.0057 umol/L
[2024-12-30 08:27] LABS: Anion Gap 11 (12-20); Blood Urea Nitrogen 16 mg/dL (9-16); Calcium 9.8 mg/dL (8.4-10.2); Carbon Dioxide 23 mmol/L (22-29); Chloride 110 mmol/L (96-108); Estimated Glomerular Filt Rate > 60; Glucose Random 158 mg/dL (60-115); Potassium 4.3 mmol/L (3.3-5.1); Sodium 140 mmol/L (135-145)
== END 2024-12-30 07:01 | disposition home or self-care (01) ==
LOC: HO.LAB 07:00
PROVIDERS: Referring Provider Internal Medicine; Visit Provider Internal Medicine
DX: E11.9 Type 2 diabetes mellitus without complications (principal); I10 Essential (primary) hypertension; E78.00 Pure hypercholesterolemia, unspecified
CPT/HCPCS: 36415; 80048; 83036

== ENCOUNTER 2025-01-12 11:39 | Day surgery (SDC) | payer OTHER, SELFPAY ==
--- OUTSIDE RECORDS SUMMARY | 2024-11-24 07:50 | XMS_ITS | Patient Health Record ---
Author Organization [facility] Address [address] [place] [address] Care Team Providers Care Radar Engineering Teacher Name Role Phone Kalin Peña MD Primary Care Provider Isaak Winslow [phone] ALLERGIES Allergen (clinical drug ingredient) Drug/Non Drug Allergy documented on EMR Reaction Allergy Type Onset Date Status Penicillin Unknown Drug Allergy Active RESULTS Component Value Reference Range Notes Glucose, Whole Blood Reviewed date:02/26/2024 04:37:09 PM Interpretation: Performing Lab:[facility], [address] [place] [id number] Notes/Report: Glucose, Whole Blood 134 60-115 mg/dL METER # : [id number] REASON FOR REFERRAL No Information MEDICATIONS Medication [...] Colon cancer screening (Z12.11) Active confirmed Colon can cer screening (896735095) Problem Encounter for other preprocedural examination (Z01.818) Active confirmed Pre-procedure evaluation check (750388112) Problem Diverticulosis of large intestine without perforation or abscess without bleeding (K57.30) Active confirmed Diverticul ar disease of colon (163079229) VITAL SIGNS Temperature 97.7 degrees Fahrenheit 11/26/2023 Blood pressure diastolic 00 mm Hg 11/26/2023 Height 5 ft 0 in in 11/26/2023 Blood pressure systolic 00 mm Hg 11/26/2023 Weight 135 lbs 11/26/2023 BMI 26.36 kg/m2 11/26/2023 Encounters Encounter Location Date Provider Diagnosis [facility] Out[facility] [address], [place] [id number] 02/26/2024 Isaak Gonzalez Encounter for screen ing colonoscopy Z12.11 ; Diverticulosis of large intestine without perforation or abscess without bleeding K57.30 and Other hemorrhoids K64.8 [facility] [address] [place] [address] 11/26/2023 Isaak Gonzalez Colon cancer screeni ng Z12.11 and Encounter for other preprocedural examination Z01.818 ASSESSMENTS Encounter Date Diagnosis Assessment Notes Treatment Notes Treatment Clinical Notes 02/26/2024 Encounter for screening colonoscopy (ICD-10 - Z12.11) 02/26/2024 Diverticulosis of large intestine without perforation or abscess without bleeding (ICD-10 - K57.30) 11/26/2023 Colon cancer screening (ICD-10 - Z12.11) STOP JARDIANCE FOR A COMPLETE THREE DAYS BEFORE THE COLONOSCOPY 11/26/2023 Encounter for other preprocedural examination (ICD-10 - Z01.818) 02/26/2024 Other hemorrhoids (ICD-10 - K64.8) PLAN OF TREATMENT Future Test Test Name Order Date COLONOSCOPY 11/26/2023 Insurance Providers Payer Name Payer Address Payer Phone Subscriber Number Group Number Insured Name Patient Relationship to Insured Coverage Start Date Coverage End Date [facility] [address] [place] [address] [id number] KRISTA CHOPRA Self - patient is the insured MEDICAL (GENERAL) HISTORY Medical History History ICD Code Hypertension NIDDM Denies [place],DM,CVA,Lung disease,renal dise ase Surgical History Surgery Date(Month/Year) Abdominoplasty 04/18
--- OUTSIDE RECORDS SUMMARY | 2024-11-24 07:50 | XMS_ITS ---
Author Organization [facility] Address [address] [place] [address] Care Team Providers Care Blueprint Duplicator Name Role Phone Kalin Peña MD Primary Care Provider Isaak Winslow Unavailable [phone] REASON FOR VISIT screening PROBLEMS Problem Type ICD Code Onset Dates Problem Status W/U Status Risk SNOMED Code Notes Problem Diverticulosis of large intestine without perforation or abscess without bleeding (K57.30) Active confirmed Diverticul ar disease of colon (658063708) Encounters Encounter Location Date Provider Diagnosis [facility] [place] [address], [place] [id number] 02/26/2024 Isaak Gonzalez Encounter for scre ening colonoscopy Z12.11 ; Diverticulosis of large intestine without perforation or abscess without bleeding K57.30 and Other hemorrhoids K64.8 ASSESSMENTS Encounter Date Diagnosis Assessment Notes Treatment Notes Treatment Clinical Notes 02/26/2024 Encounter for screening colonoscopy (ICD-10 - Z12.11) 02/26/2024 Diverticulosis of large intestine without perforation or abscess without bleeding (ICD-10 - K57.30) 02/26/2024 Other hemorrhoids (ICD-10 - K64.8) PLAN OF TREATMENT No Information
--- OUTSIDE RECORDS SUMMARY | 2024-11-24 07:50 | XMS_ITS ---
Continuity of Care Document (CCD) Created on: November 24, 2024 Chio Moore External Reference #: [id number] : [id number] Sex: Female Author Organization [facility] [address] [place] [address] Phone [phone] Care Team Providers Care Damage Adjuster Name Role Phone Kalin Peña M.D. Care Team Information Receiv er [phone] Social History Type Date Description Comments Sex Unknown Medical Devices Description No Information Available Encounters Description No Information Available Assessments Description No Information Available Plan of Treatment Future Appointment(s):* 01/13/2025 9:15 am - [facility] at Main Office Functional Status Description No Information Available Mental Status Description No Information Available Referrals Description No Information Available
--- OUTSIDE RECORDS SUMMARY | 2024-11-24 07:50 | XMS_ITS ---
Author Organization [facility] Address [address] [place] [address] Care Team Providers Care Military Source Operations Officer Name Role Phone Kalin Peña MD Primary Care Provider Isaak Winslow Unavailable [phone] ALLERGIES Allergen (clinical drug ingredient) Drug/Non Drug Allergy documented on EMR Reaction Allergy Type Onset Date Status Penicillin Unknown Drug Allergy Active REASON FOR VISIT Patient presents today for discuss colonoscopy MEDICATIONS Medication SIG (Take, Route, Frequency, Duration) [...] screening (Z12.11) Active confirmed Colon cancer screening (188410164) Problem Encounter for other preprocedural examination (Z01.818) Active confirmed Pre-procedure evaluation check (254332679) VITAL SIGNS Temperature 97.7 degrees Fahrenheit 11/26/19 24 Blood pressure systolic 00 mm Hg 11/26/19 24 Blood pressure diastolic 00 mm Hg 024 Height 5 ft 0 in in 11/26/2023 Weight 135 lbs 11/26/2023 BMI 26.36 kg/m2 11/26/2023 Encounters Encounter Location Date Provider Diagnosis [facility] [address] [place] [address] 11/26/2023 Isaak Gonzalez Colon cancer screeni ng Z12.11 and Encounter for other preprocedural examination Z01.818 ASSESSMENTS Encounter Date Diagnosis Assessment Notes Treatment Notes Treatment Clinical Notes 11/26/2023 Colon cancer screening (ICD-10 - Z12.11) STOP JARDIANCE FOR A COMPLETE THREE DAYS BEFORE THE COLONOSCOPY 11/26/2023 Encounter for other preprocedural examination (ICD-10 - Z01.818) PLAN OF TREATMENT Treatment Notes Assessment Notes Colon cancer screening STOP JARDIANCE FO R A COMPLETE THREE DAYS BEFORE THE COLONOSCOPY Future Test Test Name Order Date COLONOSCOPY 11/26/2023 Next Appt Details Follow Up: prn, Reason: Progress Notes * Examination Category Sub-Category Detail Notes General Examination GENERAL APPEARANCE: pleasant , well nourished, well developed, in no acute distress HEAD: EYES: sclera non-icteric EARS: NOSE: THROAT: NECK/THYROID: no cervical lymphade nopathy, neck supple HEART: S1, S2 normal CHEST: LUNGS: clear to auscultatio n bilaterally ABDOMEN: normal bowel sounds, no guarding or rigidity, no guarding or rigidity, no masses palpable, soft, nontender, nondistended NEUROLOGIC: alert and oriented SKIN: nonjaundiced, no spi donna angiomata EXTREMITIES: no edema PERIPHERAL PULSES: BACK: BREASTS: MUSCULOSKELETAL: MALE GENITOURINARY: LYMPH NODES: RECTAL EXAM: FEMALE GENITOURINARY: ORAL CAVITY: mucosa moist
[2025-01-10 11:24] VITALS: BMI 27.3
[2025-01-12 11:55] VITALS: BMI 27.8
[2025-01-12 12:15] VITALS: BP 126/74; PULSE 87; RESP 18; TEMP 36.7; O2SAT 96
--- NOTE | 2025-01-12 12:46 | MHC.SHP ---
Pre-Procedural Eval Section A - 24 Hr Update-Section A only Date of Service: 01/12/25 The patient is an INPATIENT: No Changes since office visit: No Cold of Flu in the past 2 weeks, No New Medical Problems, No Changes in Medication and No Patient answered all questions The patient has been examined within 24 hours of the surgical procedure. The History & Physical has been completed within 30 days and I have reviewed it.: Yes Section B - Complete if H&P > 30 days Chief Complaint: Carpal tunnel syndrome, right upper limb Allergies: Allergies Allergy/AdvReac Type Severity Reaction Status Date / Time Penicillins [PENICILLINS] Allergy Intermediate rash Verified 01/12/25 12:24 Plan Diagnosis/Plan: Unchanged I have reviewed the history and physical and performed a pertinent physical examination on my patient. No changes have occurred unless specified. Time Spent With Patient Time: Total time managing care of this patient today ____ minutes.
--- NOTE | 2025-01-12 12:47 | P.OP_ITS ---
Operative Note Operative Note Date of Service: 01/12/25 Narrative: Preop diagnosis: 1. Right Carpal tunnel syndrome Postop diagnosis: same Procedure: 1. Right Carpal tunnel release Surgeon: Annamarie Hernandez MD Chief Embalmer: Vu JOHNSON Anesthesia: local block using 1% lidocaine with epinephrine Findings: Thickened transverse carpal ligament. EBL: Less than 5 mL Specimens: None Complications: None Disposition: Brought to recovery room in stable condition Plan: Follow-up for 10-14 days for wound check and suture removal Indications: The patient is 49 years old, with right carpal tunnel syndrome that has been unresponsive to nonoperative management. The risks and benefits of operative treatment including but not limited to risk of damage to blood vessels, nerves, tendons, infection, persistent pain, persistent symptoms, or possible need for additional surgery were discussed with the patient and the patient wishes to proceed with surgery. Procedure: Once consent was obtained a local block was performed using a combination of 1% lidocaine with epinephrine. The patient was then brought back to the operating suite and placed on the operative table in supine position. The right upper extremity was prepped and draped in a standard surgical fashion. Once assured that we had a good block, a 2.0 cm longitudinal incision was made centered over the carpal tunnel. The incision was made through the skin to the subcutaneous tissues using a #15 blade. Dissection was made down to the level of the transverse carpal ligament with care being taken to protect the palmar cutaneous nerve. Once the transverse carpal ligament was clearly visualized, a longitudinal incision was made in the transverse carpal ligament 1st using a #15 blade, then using tenotomy scissors under direct visualization. Care was taken to look for and protect the motor branch of the median nerve when seen in this area. Once satisfied with our carpal tunnel release the wound was copiously irrigated with normal saline and hemostasis was obtained with a brief period of local pressure. The skin edges were reapproximated with some 5.0 nylon suture material and a sterile dressing was applied. The patient appears to have tolerated the procedure well and with no complications. All digits were well vascularized at the conclusion of the case.
[2025-01-12 13:30] VITALS: BP 120/75; PULSE 76; RESP 15; O2SAT 97
== END 2025-01-12 13:32 | disposition home or self-care (01) ==
PROVIDERS: PCP Internal Medicine; Visit Provider Orthopaedic Surgery
PROC: (CPT 64721; principal; 2025-01-12 16:20)
DX: G56.01 Carpal tunnel syndrome, right upper limb (principal); R20.0 Anesthesia of skin; R20.2 Paresthesia of skin; M19.011 Primary osteoarthritis, right shoulder; I10 Essential (primary) hypertension; E11.9 Type 2 diabetes mellitus without complications; Z98.890 Other specified postprocedural states; Z88.0 Allergy status to penicillin; Z87.891 Personal history of nicotine dependence
CPT/HCPCS: 64721; J0171; J2003

== ENCOUNTER → 2025-01-12 11:39 | Outpatient (BNV) | payer OTHER, SELFPAY | PROVIDERS: PCP Internal Medicine; Visit Provider Orthopaedic Surgery | DX: G56.01 Carpal tunnel syndrome, right upper limb (principal) | CPT/HCPCS: 64721 ==

== ENCOUNTER 2025-01-26 09:38 | Outpatient (AMB) | payer OTHER, SELFPAY ==
[2025-01-26 09:59] VITALS: BP 126/72; PULSE 86; RESP 14; TEMP 36.4; O2SAT 99; BMI 27.7
--- NOTE | 2025-01-26 09:59 | MHC.PC.OV ---
Vital Signs 01/26/25 09:59 Height 5 ft Weight 142 lb BMI 27.7 BP 126/72 Respiration 14 Pulse 86 Pulse Source Pulse Oximeter Temp 97.6 F Temp Source Temporal Artery Scan Pulse Oximetry (%) 99 Oxygen Delivery Method Room Air Intake Visit Reasons: Review Recent Labs Rn Or Lvn Required: No Accompanied by: Self / Same As Patient Allergies Penicillins [PENICILLINS] Allergy (Intermediate, Verified 01/26/25 09:59) rash Tobacco use date assessed: 01/26/25 Dental Screening Dental Screen Date: 01/26/25 Did you have a dental visit in the last 12 months?: Yes Did you have a dental problem in the last 6 months where you did not have access to dental care?: No Was dental information given to patient?: Patient has dentist HPI HPI Comments History of Present Illness Details The patient is a 49 year old female with a past medical history of diabetes, neck and shoulder pain. Seen by pcp jun 2024 Diabetes-Last A1C 7.8%. Just started mounjaro 2.5 yesterday. Saw endocrinology [address] [place] [address] and will follow up again in one month. Using one touch. Has tried jardiance (yeast infection), metformin (GI SE) CV: on labetolol, lisinopril. Blood pressure is well controlled Saw pain management, orthopedics. Has right carpal tunnel. Right calcific tendinitis Colonoscopy is UTD Data Warehousing Architect: [facility]. Mammo UTD ROS CONSTITUTIONAL: Denies weight loss, fever and chills. HEENT: Denies changes in vision and hearing. RESPIRATORY: Denies SOB and cough. CV: Denies palpitations and CP GI: Denies abdominal pain, nausea, vomiting and diarrhea. : Denies dysuria and urinary frequency. MSK: Denies new myalgia and joint pain. SKIN: Denies rash and pruritus. NEUROLOGICAL: Denies headache PSYCHIATRIC: Denies recent changes in mood. PHYSICAL EXAM: GENERAL: Alert and oriented x 3. NAD EYES: EOMI. Anicteric. HENT: Moist mucous membranes. No scleral icterus. No cervical lymphadenopathy. LUNGS: Clear to auscultation bilaterally. CARDIOVASCULAR: Regular rate and rhythm. No murmur. No JVD. ABDOMEN: Soft, non-tender +bs EXTREMITIES: No edema. Non-tender. SKIN: No rashes or lesions. Warm. NEUROLOGIC: No focal neurological deficits. CN II-XII grossly intact PSYCHIATRIC: Cooperative. Appropriate mood and affect [facility] Medical History (Updated 01/26/25 @ 10:26 by Frieda Chaves MD) Arthritis of right glenohumeral joint Shoulder pain, right PONV (postoperative nausea and vomiting) Hx of infertility History of blood transfusion Yeast infection Diabetes HTN (hypertension) Surgical History History of colonoscopy (~02/26/24) Tubal ligation status Hx of abdominoplasty Family History Father Pre-diabetes High cholesterol Mother Diabetes High cholesterol High blood pressure Gout Social History Housing: House Are you a primary home child care provider to a significant other at home: Yes (children, supportive ) Do you presently have visiting nurse or other home services: No Alcohol intake: current Alcohol intake frequency: holidays/special occasions only Patient Tobacco Use Status: Former Tobacco user Tobacco use type: Cigarette service: No Current occupational status: employed Current occupation: [employer] Cognitive needs: No Hearing needs: No Vision needs: Yes (reading) Questionnaire PHQ-9 Over the last 2 weeks, how often have you been bothered by any of the following problems? 1. Little interest or pleasure in doing things: not at all 2. Feeling down, depressed, or hopeless: not at all 3. Trouble falling or staying asleep, or sleeping too much: not at all 4. Feeling tired or having little energy: not at all 5. Poor appetite or overeating: not at all 6. Feeling bad about yourself - or that you are a failure or have let yourself or your family down: not at all 7. Trouble concentrating on things, such as reading the newspaper or watching television: not at all 8. Moving or speaking so slowly that other people could have noticed. Or the opposite - being so fidgety or restless that you have been moving around a lot more than usual: not at all 9. Thoughts that you would be better off or of hurting yourself in some way: not at all Total score: 0 Depression Screening Interpretation: Negative Depression Screening Done: Yes 77124 - PHQ-9 Billing: Yes Source: Developed by Drs. Isaak De Leon, Zoey Mckeon, Isaiah Denise and colleagues, with an educational jus from [employer]. Thrive Questionnaire Date Thrive assessed: 01/26/25 I am a: Patient What is your living situation today?: I have a steady place to live Within the past 12 months, did the food you bought not last and you didn't have the money to get more?: Never true Within the past 12 months, did you worry whether your food would run out before you got money to buy more?: Never true Do you have trouble paying for medicines?: No Do you have trouble getting transportation to medical appointments?: No Do you have trouble paying your heating and electricity bill?: No Do you have trouble taking care of your child, family member or friend?: No Do you have trouble with day-to-day activities such as bathing, preparing meals, shopping, managing finances, etc.?: No Are you currently unemployed and looking for a job?: No Are you interested in more education?: No Please select the resources that you would like help with: None THRIVE Score: 0 AUDIT C Alcohol Use Questionnaire (AUDIT-C) 1. How often do you have a drink containing alcohol?: Monthly or less 2. How many drinks containing alcohol do you have on a typical day when you are drinking?: 1 or 2 3. How often do you have six or more drinks on one occasion?: Never Total Score: 1 TAMMI-7 AMB Questionnaire TAMMI-7 Date TAMMI - 7 assessed: 01/26/25 Feeling nervous, anxious, or on edge: 0 = Not at all Not being able to stop or control worryin = Not at all Worrying too much about different things: 0 = Not at all Trouble relaxin = Not at all Being so restless that it is hard to sit still: 0 = Not at all Becoming easily annoyed or irritable: 0 = Not at all Feeling afraid as if something awful might happen: 0 = Not at all Total TAMMI-7 score (0-4 normal; 5-9 mild; 10-14 moderate; 15-21 severe): 0 Source: Developed by Zoey Thomas Mike, Isaiah Denise and colleagues, with an educational jus from [employer]. Physical exam (Primary Care) Vital Signs: Last Vital Signs Temp 97.6 F 01/26/25 09:59 Pulse 86 01/26/25 09:59 Resp 14 01/26/25 09:59 BP 126/72 01/26/25 09:59 Pulse Ox 99 01/26/25 09:59 Oxygen Delivery Method Room Air 01/26/25 09:59 BMI result Body Mass Index 27.7 Tobacco/Smoking Status: Tobacco use Status Tobacco use date assessed 01/26/25 01/26/25 10:12 Patient Tobacco Use Status Former Tobacco user 01/26/25 10:12 Tobacco use type Cigarette 01/26/25 10:12 PHQ-9: PHQ-9 Score PHQ-9: Total score 0 01/26/25 10:12 Depression Screening Interpretation: Negative Thrive Assessment: Date of Thrive Assessment Date Thrive assessed 01/26/25 01/26/25 10:12 Coding Level of Care Code New Pt Level 4 (72925) Complex EM visit Add On G2211 Diagnoses Primary hypertension I10 Hypertension type: primary hypertension Type 2 diabetes mellitus with hyperglycemia, without long-term current use of insulin E11.65 Diabetes mellitus type: type 2 Diabetes mellitus ad terminal makeup operator insulin use: without longterm use Diabetes mellitus complication status: with hyperglycemia Additional Codes PHQ-9 - 81406 - PHQ-9 Billing: Yes ([id number]) Assessment & Plan Assessment & Plan (1) HTN (hypertension): Code(s): I10 - Essential (primary) hypertension Category: Medical Qualifiers: Hypertension type: primary hypertension Qualified Code(s): I10 - Essential (primary) hypertension (2) Diabetes: Code(s): E11.9 - Type 2 diabetes mellitus without complications Category: Medical Qualifiers: Diabetes mellitus type: type 2 Diabetes mellitus ad terminal makeup operator insulin use: without longterm use Diabetes mellitus complication status: with hyperglycemia Qualified Code(s): E11.65 - Type 2 diabetes mellitus with hyperglycemia Plan 49 y/o to establish care Past med, surgical, social and family history reviewed Diabetes-uncontrolled. just started mounjaro. follows up endocrine one month. Will follow up here in 3 months Orders: Orders Glutamic acid decarboxylase Ab 3 Months M19.011 - Primary osteoarthritis, right shoulder Hemoglobin A1c 3 Months M19.011 - Primary osteoarthritis, right shoulder Lipid Panel 3 Months M19.011 - Primary osteoarthritis, right shoulder Comprehensive Met. Panel 3 Months M19.011 - Primary osteoarthritis, right shoulder
--- OUTSIDE RECORDS SUMMARY | 2025-01-26 10:37 | XMS_ITS | Continuity of Care Document ---
Author Organization [facility] [address] [place] [address] Phone [phone] Care Team Providers Care Immigration Inspector Name Role Phone Kalin Peña M.D. Care Team Information Receiv er [phone] Problems Active Problems Provider Date Type 2 diabetes mellitus ALEX Mg Onse t: 01/13/2025 Essential hypertension ALEX Mg Onset: 01/13/2025 Social History Type Date Description Comments Sex Unknown Tobacco Use Start: Unknown End: Unknown Quit Smoking Status Reviewed: 09/28/13 Quit ETOH Use Occasionally consumes alcoho l Medications Active Medications SIG Qnty Indications Order ing Provider Date Mounjaro2.5mg/0.5ML Solution Auto-Inject inject 2.5 mg weekly subcutaneously 2ml E11.9 Bisi Rascon M.D. 01/13/2025 Famgkgnobs0ty Tablets Take 1 Tablet By Mouth Every Day Frieda Lamb M.D. Onetouch VerioStrips Use 1 Test Strip Vi a Meter Twice A Day.E11.9 Kalin Peña M.D. Norethindrone Qbyujeo0bc Tablets Take 1 Tablet By Mouth Every Day Case Najera M.D. Metformin HCL EU979gh Tablets ER 24HR Take 1 Tablet By Mouth Twice A Day Kalin Peña M.D. Labetalol KED948wi Tablets Take 1 Tablet By Mouth Twice A Day Kalin Peña M.D. Zbxpietl211wi Tablets Take 1 Tablet By Mouth 2 Times A Day as Needed For Pain. Take With Food/Full Gla Lexie Talavera NP Fluticasone Fipbhsooqw20bup/Act Suspension Give 1 Squirt(S) In Both Nostrils Twice A Day Kalin Peña M.D. Vital Signs Date Vital Result Comment 01/13/2025 9:38am BP Systolic 132 mmHg BP Diastolic 88 mmHg Heart Rate 78 /min Height 60 inches 5'0 Weight 143.00 lb BMI (Body Mass Index) 27.9 kg/m2 Results Test Acquired Date Facility Test Result H/L Range N ote Glucose Fingerstick 01/13/2025 Inhouse Glucose Fingerstick 275 Medical Devices Description No Information Available Encounters Type Date Location Provider Dx Diagnosis Office Visit 01/13/2025 9:15a Main Office ALEX Mg E11.9 Type 2 diabet es mellitus without complications I10 Essential (primary) hypertension E78.00 Pure hypercholestero lemia, unspecified Assessments Date Code Description Provider 01/13/2025 E11.9 Type 2 diabetes mellitus wit hout complications ALEX gM 01/13/2025 I10 Essential (primary) hyperten emily ALEX Mg 01/13/2025 E78.00 Pure hypercholesterolemia, u nspecified ALEX Mg Plan of Treatment Future Appointment(s):* 02/24/2025 3:15 pm - ALEX Mg at Main Office 01/13/2025 - ALEX Mg* E11.9 Type 2 diabetes mellitus without complications * I10 Essential (primary) hypertension * E78.00 Pure hypercholesterolemia, unspecified* New Medication:* Mounjaro 2.5 mg/0.5ML Functional Status Description No Information Available Mental Status Description No Information Available Referrals Description No Information Available
== END 2025-01-26 10:33 | disposition home or self-care (01) ==
LOC: HO.HMCHD 09:38
PROVIDERS: PCP Internal Medicine; Visit Provider Internal Medicine
DX: I10 Essential (primary) hypertension (principal); E11.65 Type 2 diabetes mellitus with hyperglycemia

== ENCOUNTER → 2025-01-26 09:38 | Outpatient (BNVA) | payer OTHER, SELFPAY | PROVIDERS: PCP Internal Medicine; Visit Provider Internal Medicine | DX: E11.65 Type 2 diabetes mellitus with hyperglycemia (principal); M54.2 Cervicalgia; I10 Essential (primary) hypertension; M19.011 Primary osteoarthritis, right shoulder | CPT/HCPCS: 96127 ==

== ENCOUNTER 2025-01-27 12:31 | Outpatient (AMB) | payer OTHER, SELFPAY ==
--- NOTE | 2025-01-27 12:51 | A.OFFVIS_ITS ---
Intake Visit Reasons: PO RT CTR 01/12/25 AR Intake Note: Chio 49 year old female presents today for his P/O visit for her right hand CTR done with Dr Hernandez on 01/12/25. States symptoms have improved and is doing well. She has discomfort at her MCP that radiates down her into her forearm. Stylist Apprentice Services: Stylist Apprentice Offered & Declined Allergies Penicillins [PENICILLINS] Allergy (Intermediate, Verified 01/26/25 09:59) rash HPI HPI PO RT CTR 01/12/25 AR: Details: Chio 49 year old female presents today for his P/O visit for her right hand CTR done with Dr Hernandez on 01/12/25. States symptoms have improved and is doing well. She has discomfort at her MCP that radiates down her into her forearm. REPLACED BY [facility] Medical History (Updated 01/26/25 @ 10:26 by Frieda Chaves MD) Arthritis of right glenohumeral joint Shoulder pain, right PONV (postoperative nausea and vomiting) Hx of infertility History of blood transfusion Yeast infection Diabetes HTN (hypertension) Surgical History History of colonoscopy (~02/26/24) Tubal ligation status Hx of abdominoplasty Family History Father Pre-diabetes High cholesterol Mother Diabetes High cholesterol High blood pressure Gout Social History Housing: House Are you a primary physician primary care sports medicine to a significant other at home: Yes (children, supportive ) Do you presently have visiting nurse or other home services: No Alcohol intake: current Alcohol intake frequency: holidays/special occasions only Patient Tobacco Use Status: Former Tobacco user Tobacco use type: Cigarette service: No Current occupational status: employed Current occupation: [employer] Cognitive needs: No Hearing needs: No Vision needs: Yes (reading) Review of Systems Const All systems reviewed & are unremarkable except as noted in HPI and below Physical Exam Extrem Other: Patient is alert, oriented, and in no acute distress. Neuro: Normal sensation of the tips of all digits of the right hand at this time Vascular: Cap refill brisk Pain: No tenderness to palpation about incision site and volar right wrist ROM: Patient is able to make a closed fist and extend all digits fully Skin: Well approximated and well healing incision site noted on the volar right wrist No lacerations or abrasions. General: No ecchymosis, erythema, or evidence of infection. Psych: Appears grossly normal Affect normal Attitude cooperative Assessment & Plan Assessment & Plan (1) Right carpal tunnel syndrome: Code(s): G56.01 - Carpal tunnel syndrome, right upper limb Category: Medical Plan 1. Status post right carpal tunnel release DOS 01/12/2025 Complete symptom resolution postoperatively Patient is educated about this condition Patient is educated about the typical recovery course At this time, patient was informed she will require no acute follow-up with us, as she is recovering quite well Patient was amenable to this plan Follow-up as needed Coding Level of Care Code Global (03362) Diagnoses Right carpal tunnel syndrome G56.01
--- OUTSIDE RECORDS SUMMARY | 2025-01-27 13:03 | XMS_ITS ---
Author Organization [facility] Address [address] [place] [address] Care Team Providers Care Under Water Assistant Name Role Phone Kalin Peña MD Primary Care Provider Isaak Winslow Unavailable [phone] Allergies Allergen (clinical drug ingredient) Drug/Non Drug [...] Status Risk Notes Problem Colon cancer screening (977962367) Colon cancer screening (Z12.11) Active confirmed Problem Pre-procedure evaluation check (745409231) Encounter for other preprocedural examination (Z01.818) Active confirmed Vital Signs Temperature 97.7 degrees Fahrenheit 11/26/19 24 Blood pressure systolic 00 mm Hg 11/26/19 24 Blood pressure diastolic 00 mm Hg 024 Height 5 ft 0 in in 11/26/2023 Weight 135 lbs 11/26/2023 BMI 26.36 kg/m2 11/26/2023 Encounters Encounter Location Date Provider Diagnosis [facility] [address] [place] [address] 11/26/2023 Isaak Gonzalez Colon cancer screeni ng [...] * CHIO CHOPRADOB: 5 (48 yo F)Acc No.[id number]:11/26/2023 Progress Notes Patient:?CHIO CHOPRA Provider:?Isaak Gonzalez MD :1975???Age:48 Y???Sex:Female D ate:11/26/2023 Address:[address] [place], [place] [id number] Pcp:Kalin Peña MD Subjective: * Chief Complaints: [...] past year??Never (0 point),?Points?1,?Interpretation?Negative.?Miscellaneous:?Marital status: . Occupation: [place] [employer] at a [employer]. ???Nonsmoker; no sig alcohol. * Medications:?TakingJardiance 10 [...] Procedure Codes:?3017F COLOR ECTAL CA SCREEN DOC VIQ7665I TOBACCO NON-EBEGG0850 BP SCR NOT PRFRM REC REASON NOS * Preventive Medicine:? ??Counseling:?Care goal follow-up plan:?Above Normal BMI Follow-up?Giving encouragement to exercise,?BMI management provided?Yes.? * Follow Up:?prn * * Sign off status: Completed true * Provider:?Isaak Gonzalez MD Date:? 024 Generated for Francheska rogers/Karissa/eTransmitting on:?01/27/2025 01:03 PM EDT History and Physical Notes * [...]
--- OUTSIDE RECORDS SUMMARY | 2025-01-27 13:03 | XMS_ITS | Continuity of Care Document ---
Author Organization [facility] [address] [place] [address] Phone [phone] Care Team Providers Care Modern And Contemporary Art Curator Name Role Phone Kalin Peña M.D. Care Team Information Receiv er [phone] Problems Active Problems Provider Date Type 2 [...] subcutaneously 2ml E11.9 Bisi Rascon M.D. 01/13/2025 Xwpzebovwk6er Tablets Take 1 Tablet By Mouth Every Day Frieda Lamb M.D. Onetouch VerioStrips Use 1 Test Strip Vi a Meter Twice A Day.E11.9 Kalin Peña M.D. Norethindrone Lkrbjfo8cb Tablets Take 1 Tablet By Mouth Every Day Case Najera M.D. Metformin HCL WV826ve Tablets ER 24HR Take 1 Tablet By Mouth Twice A Day Kalin Peña M.D. Labetalol RQQ415xq Tablets Take 1 Tablet By Mouth Twice A Day Kalin Peña M.D. Sgiydvtd992ad Tablets Take 1 Tablet By Mouth 2 Times A Day as Needed For Pain. Take With Food/Full Gla Lexie Talavera NP Fluticasone Mzyrvkbscu48noq/Act Suspension Give 1 Squirt(S) In Both Nostrils [...] 2 diabetes mellitus wit hout complications ALEX Mg 01/13/2025 I10 Essential (primary) hyperten emily ALEX [...]
--- OUTSIDE RECORDS SUMMARY | 2025-01-27 13:03 | XMS_ITS | Patient Health Record ---
Author Organization [facility] Address [address] [place] [address] Care Team Providers Care Documentation Designer Name Role Phone Kalin Peña MD Primary Care Provider Isaak Winslow [phone] Allergies Allergen (clinical drug ingredient) Drug/Non Drug Allergy documented on EMR Reaction Allergy Type Onset Date Status Penicillin Unknown Drug Allergy Active Results Component Value Reference Range Notes Glucose, Whole Blood Reviewed date:02/26/2024 04:37:09 PM Interpretation: Performing Lab:[facility], [address] [place] [phone] Notes/Report: Glucose, Whole Blood 134 60-115 mg/dL METER # : [id number] Reason For Referral No Information Medications Medication [...] Status Risk Notes Problem Colon cancer screening (684478342) Colon cancer screening (Z12.11) Active confirmed Problem Pre-procedure evaluation check (694780941) Encounter for other preprocedural examination (Z01.818) Active confirmed Problem Diverticulosis o f large intestine without perforation or abscess without bleeding (K57.30) Active confirmed Encounters Encounter Location Date Provider Diagnosis [facility] Outpatient [address] [place] [phone] 02/26/2024 Isaak Gonzalez Encounter for scre ening [...] Insured Coverage Start Date Coverage End Date [facility] [employer] [address] [place] [address] [id number] KRISTA CHOPRA Self - patient is the insured Medical (General) History Medical History History ICD Code Hypertension NIDDM Denies [place],DM,CVA,Lung disease,renal dise ase Surgical History Surgery Date(Month/Year) Abdominoplasty 04/18
--- OUTSIDE RECORDS SUMMARY | 2025-01-27 13:03 | XMS_ITS ---
Author Organization [facility] Address [address] [place] [address] Care Team Providers Care Subject Scientific Research Name Role Phone Kalin Peña MD Primary Care Provider Isaak Winslow [phone] REASON FOR VISIT screening Problems Problem Type SNOMED Code ICD Code Onset Dates Problem Status W/U Status Risk Notes Problem Diverticular disease of colon (009272177) Diverticulosis of large intestine without perforation or abscess without bleeding (K57.30) Active confirmed Encounters Encounter Location Date Provider Diagnosis [facility] [place] [address] [place] [phone] 02/26/2024 Isaak Gonzalez Encounter for scre ening [...] Notes * CHOPRAKRISTADOB: 5 (49 yo F)Acc No.[id number]:02/26/2024 COLON WITH MAC Patient:?KRISTA CHOPRA Provider:?Isaak Gonzalez MD :1975???Age:48 Y???Sex:Female D ate:02/26/2024 Address:[address] [place] [address] [place], [place] Pcp:Kalin Peña MD Subjective: * Chief Complaints: * ???1. Screening. * Medical History:? Objective: * Vitals:? Assessment: * Assessment: 1.?Encounter for screening c olonoscopy - Z12.11 (Primary)???2.?Diverticulosis of large intestine without perforation or abscess without bleeding - K57.30???3.?Other hemorrhoids - K64.8??? Plan: * Treatment: * Procedure Codes:?53746 DIAGN OSTIC COLONOSCOPY * * The named appointment provid er may or may not be the originator of this progress note, and it is not deemed complete until electronically signed by the appointment provider. Sign off status: Pending * Provider:?Isaak Gonzalez MD Date:? 024 Generated for Francheska rogers/Karissa/Rajani on:?01/27/2025 01:03 PM EDT
== END 2025-01-27 13:07 | disposition home or self-care (01) ==
LOC: HO.HOS 12:38
PROVIDERS: PCP Internal Medicine
DX: G56.01 Carpal tunnel syndrome, right upper limb (principal)
CPT/HCPCS: 99024

== ENCOUNTER → 2025-01-27 12:31 | Outpatient (BNVA) | payer OTHER, SELFPAY | PROVIDERS: PCP Internal Medicine ==

== ENCOUNTER 2025-05-09 07:22 | Outpatient (REF) | payer OTHER, SELFPAY ==
--- OUTSIDE RECORDS SUMMARY | 2025-05-09 07:24 | XMS_ITS | Continuity of Care Document ---
Author Organization [facility] [address] [place] [address] Phone [phone] Care Team Providers Care Video Control Engineer Name Role Phone Kalin Peña M.D. Care Team Information Receiv er [phone] Problems Active Problems Provider Date Type 2 diabetes mellitus ALEX Mg Onse t: 01/13/2025 Essential hypertension ALEX Mg Onset: 01/13/2025 Social History Type Date Description Comments Sex Female Sex Unknown Tobacco Use Start: Unknown End: Unknown Quit Smoking Status Reviewed: 09/28/13 Quit ETOH Use Occasionally consumes alcoho l Medications Active Medications SIG Qnty Indications Order ing Provider Date Mounjaro2.5mg/0.5ML Solution Auto-Inject inject 2.5 mg weekly subcutaneously 2ml E11.9 Bisi Rascon M.D. 01/13/2025 Ejouhvjkwj0xp Tablets Take 1 Tablet By Mouth Every Day Frieda Lamb M.D. Onetouch VerioStrips Use 1 Test Strip Vi a Meter Twice A Day.E11.9 Kalin Peña M.D. Norethindrone Erkgrir0vb Tablets Take 1 Tablet By Mouth Every Day Case Najera M.D. Metformin HCL JS655ds Tablets ER 24HR Take 1 Tablet By Mouth Twice A Day Kalin Peña M.D. Labetalol QEH822hq Tablets Take 1 Tablet By Mouth Twice A Day Kalin Peña M.D. Lngftblh897jv Tablets Take 1 Tablet By Mouth 2 Times A Day as Needed For Pain. Take With Food/Full Gla Buchachiy, Lexie K, GAS LEAK TESTER Fluticasone Vahxjshowe42zjc/Act Suspension Give 1 Squirt(S) In Both Nostrils Twice A Day Kalin Peña M.D. Vital Signs Date Vital Result Comment 02/24/2025 3:30pm BP Systolic 126 mmHg BP Diastolic 88 mmHg Heart Rate 70 /min Height 60 inches 5'0 Weight 138.50 lb BMI (Body Mass Index) 27.0 kg/m2 Results Test Acquired Date Facility Test Result H/L Range N ote Glucose Fingerstick 02/24/2025 Inhouse Glucose Fingerstick 131 Glucose Fingerstick 01/13/2025 Inhouse Glucose Fingerstick 275 Medical Devices Description No Information Available Encounters Type Date Location Provider Dx Diagnosis Office Visit 02/24/2025 3:15p Main Office ALEX Mg E11.9 Type 2 diabet es mellitus without complications I10 Essential (primary) hypertension Assessments Date Code Description Provider 02/24/2025 E11.9 Type 2 diabetes mellitus wit hout complications ALEX Mg 02/24/2025 I10 Essential (primary) hyperten emily ALEX Mg Plan of Treatment Future Appointment(s):* 06/06/2025 3:15 pm - Britany Mcguire CNP at Main Office 02/24/2025 - ALEX Mg* E11.9 Type 2 diabetes mellitus without complications * I10 Essential (primary) hypertension Functional Status Description No Information Available Mental Status Description No Information Available Referrals Description No Information Available
[2025-05-09 08:56] LABS: Hemoglobin A1C 186.6281 umol/L; Total Hemoglobin (HGBA1C) 3302.9840 umol/L
[2025-05-09 09:28] LABS: Alanine Aminotransferase 43 U/L (0-31); Albumin Level 4.6 g/dL (3.5-5.0); Alkaline Phosphatase 80 U/L (39-117); Anion Gap 11 (12-20); Aspartate Amino Transferase 29 U/L (5-31); Blood Urea Nitrogen 15 mg/dL (9-16); Calcium 9.4 mg/dL (8.4-10.2); Carbon Dioxide 25 mmol/L (22-29); Chloride 108 mmol/L (96-108); Cholesterol 205 mg/dL (<200); Estimated Glomerular Filt Rate > 60; HDL Cholesterol 34 mg/dL (>40); Potassium 4.0 mmol/L (3.3-5.1); Sodium 140 mmol/L (135-145); Total Protein 7.4 g/dL (6.5-8.0); Triglycerides 169 mg/dL (<150)
== END 2025-05-09 07:23 | disposition home or self-care (01) ==
LOC: HO.LAB 07:22
PROVIDERS: Visit Provider Internal Medicine
DX: Z01.84 Encounter for antibody response examination (principal); M19.011 Primary osteoarthritis, right shoulder; Z13.6 Encounter for screening for cardiovascular disorders
CPT/HCPCS: 36415; 80053; 80061; 83036; 86341

== ENCOUNTER 2025-05-11 09:26 | Outpatient (AMB) | payer OTHER, SELFPAY ==
[2025-05-11 09:18] VITALS: BP 120/76; PULSE 70; TEMP 36.5; O2SAT 99; BMI 26.4
--- NOTE | 2025-05-11 09:18 | MHC.PC.OV ---
Vital Signs 05/11/25 09:18 Height 5 ft Weight 135 lb BMI 26.4 BP 120/76 Blood Pressure Location Rt brachial Position Sitting Pulse 70 Pulse Source Pulse Oximeter Temp 97.7 F Temp Source Axillary Pulse Oximetry (%) 99 Oxygen Delivery Method Room Air Intake Visit Reasons: 3 Month F/U Inspector And Clipper Required: No Accompanied by: Self / Same As Patient Allergies Penicillins (PENICILLINS) Allergy (Intermediate, Verified 05/11/25 09:20) rash Tobacco use date assessed: 05/11/25 Dental Screening Dental Screen Date: 05/11/25 Did you have a dental visit in the last 12 months?: Yes Did you have a dental problem in the last 6 months where you did not have access to dental care?: No HPI HPI Comments History of Present Illness Details The patient is a 50 year old female with a past medical history of diabetes, neck and shoulder pain presenting for follow up Diabetes-Last A1C 7.3% from 7.8%. On mounjaro 2.5mg weekly. She is willing to increase to 5mg. Sees endocrinology [address] [place] [address], has follow up sept Using one touch. Has tried jardiance (yeast infection), metformin (GI SE) CV: on labetolol, lisinopril. Blood pressure is well controlled. She has had a few episodes of left chest pressure. Non exertional. Denies heartburn Saw pain management, orthopedics. Has right carpal tunnel. Right calcific tendinitis Colonoscopy 01/2024-[address] Gonzalez Power Line Lineman: [facility]. Mammo .2024 ROS see HPI PHYSICAL EXAM: GENERAL: Alert and oriented x 3. NAD EYES: EOMI. Anicteric. HENT: Moist mucous membranes. No scleral icterus. No cervical lymphadenopathy. LUNGS: Clear to auscultation bilaterally. CARDIOVASCULAR: Regular rate and rhythm. No murmur. No JVD. ABDOMEN: Soft, non-tender +bs EXTREMITIES: No edema. Non-tender. SKIN: No rashes or lesions. Warm. NEUROLOGIC: No focal neurological deficits. CN II-XII grossly intact PSYCHIATRIC: Cooperative. Appropriate mood and affect [facility] Medical History Arthritis of right glenohumeral joint Shoulder pain, right PONV (postoperative nausea and vomiting) Hx of infertility History of blood transfusion Yeast infection Diabetes HTN (hypertension) Surgical History History of colonoscopy (~02/26/24) Tubal ligation status Hx of abdominoplasty Family History Father Pre-diabetes High cholesterol Mother Diabetes High cholesterol High blood pressure Gout Social History Housing: House Are you a primary human services care specialist to a significant other at home: Yes (children, supportive ) Do you presently have visiting nurse or other home services: No Alcohol intake: current Alcohol intake frequency: holidays/special occasions only Patient Tobacco Use Status: Former Tobacco user Tobacco use type: Cigarette service: No Current occupational status: employed Current occupation: [employer] Cognitive needs: No Hearing needs: No Vision needs: Yes (reading) Questionnaire PHQ-9 Over the last 2 weeks, how often have you been bothered by any of the following problems? 1. Little interest or pleasure in doing things: not at all 2. Feeling down, depressed, or hopeless: not at all 3. Trouble falling or staying asleep, or sleeping too much: not at all 4. Feeling tired or having little energy: not at all 5. Poor appetite or overeating: not at all 6. Feeling bad about yourself - or that you are a failure or have let yourself or your family down: not at all 7. Trouble concentrating on things, such as reading the newspaper or watching television: not at all 8. Moving or speaking so slowly that other people could have noticed. Or the opposite - being so fidgety or restless that you have been moving around a lot more than usual: not at all 9. Thoughts that you would be better off or of hurting yourself in some way: not at all Total score: 0 Depression Screening Interpretation: Negative Depression Screening Done: Yes 49231 - PHQ-9 Billing: Yes Source: Developed by Drs. Isaak De Leon, Zoey Mckeon, Isaiah Denise and colleagues, with an educational jus from [employer]. Thrive Questionnaire Date Thrive assessed: 05/11/25 I am a: Patient Within the past 12 months, did the food you bought not last and you didn't have the money to get more?: Never true Within the past 12 months, did you worry whether your food would run out before you got money to buy more?: Never true Do you have trouble paying for medicines?: No Do you have trouble getting transportation to medical appointments?: No Do you have trouble paying your heating and electricity bill?: No Do you have trouble taking care of your child, family member or friend?: No Do you have trouble with day-to-day activities such as bathing, preparing meals, shopping, managing finances, etc.?: No Are you currently unemployed and looking for a job?: No Are you interested in more education?: No THRIVE Score: 0 AUDIT C Alcohol Use Questionnaire (AUDIT-C) 1. How often do you have a drink containing alcohol?: Monthly or less 2. How many drinks containing alcohol do you have on a typical day when you are drinking?: 1 or 2 3. How often do you have six or more drinks on one occasion?: Less than monthly Total Score: 2 TAMMI-7 AMB Questionnaire TAMMI-7 Date TAMMI - 7 assessed: 05/11/25 Feeling nervous, anxious, or on edge: 0 = Not at all Not being able to stop or control worryin = Not at all Worrying too much about different things: 0 = Not at all Trouble relaxin = Not at all Being so restless that it is hard to sit still: 0 = Not at all Becoming easily annoyed or irritable: 0 = Not at all Feeling afraid as if something awful might happen: 0 = Not at all Total TAMMI-7 score (0-4 normal; 5-9 mild; 10-14 moderate; 15-21 severe): 0 Source: Developed by Drs. Isaak De Leon, Zoey Mckeon, Isaiah Denise and colleagues, with an educational jsu from [employer]. Physical exam (Primary Care) Vital Signs: Last Vital Signs Temp 97.7 F 05/11/25 09:18 Pulse 70 05/11/25 09:18 BP 120/76 05/11/25 09:18 Pulse Ox 99 05/11/25 09:18 Oxygen Delivery Method Room Air 05/11/25 09:18 BMI result Body Mass Index 26.4 Tobacco/Smoking Status: Tobacco use Status Tobacco use date assessed 05/11/25 05/11/25 09:29 Patient Tobacco Use Status Former Tobacco user 05/11/25 09:29 Tobacco use type Cigarette 05/11/25 09:29 PHQ-9: PHQ-9 Score PHQ-9: Total score 0 05/15/25 13:22 Depression Screening Interpretation: Negative Thrive Assessment: Date of Thrive Assessment Date Thrive assessed 05/11/25 05/11/25 09:29 Coding Level of Care Code Est Pt Level 4 (16405) Diagnoses Type 2 diabetes mellitus with hyperglycemia, without long-term current use of insulin E11.65 Diabetes mellitus complication status: with hyperglycemia Diabetes mellitus care home insulin use: without terminal makeup operator use Diabetes mellitus type: type 2 Primary hypertension I10 Hypertension type: primary hypertension Additional Codes PHQ-9 - 84926 - PHQ-9 Billing: Yes ([id number]) Assessment & Plan Assessment & Plan (1) Diabetes: Code(s): E11.9 - Type 2 diabetes mellitus without complications Category: Medical Qualifiers: Diabetes mellitus complication status: with hyperglycemia Diabetes mellitus terminal makeup operator insulin use: without care home use Diabetes mellitus type: type 2 Qualified Code(s): E11.65 - Type 2 diabetes mellitus with hyperglycemia (2) HTN (hypertension): Code(s): I10 - Essential (primary) hypertension Category: Medical Qualifiers: Hypertension type: primary hypertension Qualified Code(s): I10 - Essential (primary) hypertension Plan Diabetes-improving control. LDL not at goal. Increase mounjaro to 5mg daily Chest pain-EKG today HTN-well controlled Medications: New Mounjaro (tirzepatide) 5 mg (0.5 mL) subcut QWEEK 6 mL 1RF NS
--- OUTSIDE RECORDS SUMMARY | 2025-05-11 10:01 | XMS_ITS | Patient Health Record ---
Author Organization [facility] Address [address] [place] [address] Care Team Providers Care Material Specialist Name Role Phone Mariana (RETIRED) Kalin WEEKS Primary Care Provide r Isaak Ellington Unavailable [phone] Allergies Allergen (clinical drug ingredient) Drug/Non Drug Allergy documented on EMR Reaction Allergy Type Onset Date Status Penicillin Unknown Drug Allergy Active Reason For Referral No Information Medications Medication [...] Status Risk Notes Problem Colon cancer screening (243014418) Colon cancer screening (Z12.11) Active confirmed Problem Pre-procedure evaluation check (039592770) Encounter for other preprocedural examination (Z01.818) Active confirmed Problem Diverticular disease of colon (072925616) Diverticulosis of large intestine without perforation or abscess without bleeding (K57.30) Active confirmed Plan Of Treatment Future Test Test Name Order Date COLONOSCOPY 11/26/2023 Insurance Providers Payer Name Payer Address Payer Phone Subscriber Number Group Number Insured Name Patient Relationship to Insured Coverage Start Date Coverage End Date [facility] IN[address]MNITY [address] [place] [address] [id number] KRISTA CHOPRA Self - patient is the insured Medical (General) History Medical History History ICD Code Hypertension NIDDM Denies PA,DM,CVA,Lung disease,renal dise ase Surgical History Surgery Date(Month/Year) Abdominoplasty 04/18
--- OUTSIDE RECORDS SUMMARY | 2025-05-11 10:01 | XMS_ITS | Continuity of Care Document ---
Author Organization [facility] [address] [place] [address] Phone [phone] Care Team Providers Care Baggageman Name Role Phone Kalin Peña M.D. Care Team Information Receiv er [phone] Problems Active Problems Provider Date Type 2 [...] subcutaneously 2ml E11.9 Bisi Rascon M.D. 01/13/2025 [id number] Tablets Take 1 Tablet By Mouth Every Day Frieda Lamb M.D. Onetouch VerioStrips Use 1 Test Strip Vi a Meter Twice A Day.E11.9 Kalin Peña M.D. Norethindrone [id number] Tablets Take 1 Tablet By Mouth Every Day Case Najera M.D. Metformin HCL [id number] Tablets ER 24HR Take 1 Tablet By Mouth Twice A Day Kalin Peña M.D. Labetalol [id number] Tablets Take 1 Tablet By Mouth Twice A Day Kalin Peña M.D. [id number] Tablets Take 1 Tablet By Mouth 2 Times A Day as Needed For Pain. Take With Food/Full Gla Buchachiy, Lexie K, TIMBER INSPECTOR Fluticasone [id number]/Act Suspension Give 1 Squirt(S) In Both Nostrils [...]
== END 2025-05-11 10:17 | disposition home or self-care (01) ==
LOC: HO.HMCHD 09:26
PROVIDERS: PCP Internal Medicine; Visit Provider Internal Medicine
DX: E11.65 Type 2 diabetes mellitus with hyperglycemia (principal); I10 Essential (primary) hypertension

== ENCOUNTER → 2025-05-11 09:26 | Outpatient (BNVA) | payer OTHER, SELFPAY | PROVIDERS: PCP Internal Medicine; Visit Provider Internal Medicine | DX: E11.65 Type 2 diabetes mellitus with hyperglycemia (principal); I10 Essential (primary) hypertension; R07.9 Chest pain, unspecified; Z79.85 Long-term (current) use of injectable non-insulin antidiabetic drugs; Z79.899 Other long term (current) drug therapy; Z13.31 Encounter for screening for depression; Z13.39 Encounter for screening examination for other mental health and behavioral disorders | CPT/HCPCS: 96127 ==

== ENCOUNTER 2025-09-25 09:23 | Outpatient (AMB) | payer OTHER, SELFPAY ==
--- NOTE | 2025-09-25 09:29 | MHC.PC.OV ---
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 The patient has a history of type 2 diabetes mellitus and is managed by an branch sales manager at [facility], with her most recent A1c in April being 7.3%, down from a prior 7.8%. She is currently taking Mounjaro 5 mg weekly, which has resulted in significant weight loss. She follows up with her branch sales manager on the and had blood work done this morning. For hypertension, she takes labetalol 100 mg once daily and lisinopril 5 mg. It was explained that lisinopril also serves a renoprotective function due to her diabetes. Review of labs from April revealed hypercholesterolemia, with a total cholesterol of 205 and LDL of 138, which the patient was not previously aware of. Her cholesterol levels were similarly elevated in June/July of the previous year. In terms of diet, she avoids fried foods but consumes two hard-boiled eggs in the morning. The patient is managed by her math and science division chair, Dr. Underwood, for dysmenorrhea, described as out of control, with norethindrone acetate 5 mg daily. She also uses fluticasone nasal spray as needed for spring allergies and reports some constipation, which is likely a side effect of Mounjaro. Medical History: - Type 2 diabetes mellitus - Hypertension - Hypercholesterolemia - Dysmenorrhea - Allergic rhinitis Medications: - Vaginal estradiol cream, indication not specified - Fluticasone nasal spray, as needed for allergies - Labetalol 100 mg once daily for hypertension - Lisinopril 5 mg once daily for hypertension and renal protection - Mounjaro 5 mg weekly for type 2 diabetes mellitus - Norethindrone acetate 5 mg once daily for dysmenorrhea Family History: - Mother with renal impairment, reportedly close to needing dialysis Diagnostic Results: - Labs (April): Hemoglobin A1c 7.3%, total cholesterol 205 mg/dL, LDL cholesterol 138 mg/dL. - Labs ( of previous year): Total cholesterol 203 mg/dL, LDL cholesterol 137 mg/dL. - Health Screenings: Mammogram, Pap smear, and colonoscopy are all up to date. Social History - Diet: The patient avoids fried foods but consumes hard-boiled eggs for breakfast. - Weight Management: The patient has experienced significant weight loss while on Mounjaro and wishes to continue losing weight. [facility] Medical History (Updated 09/25/25 @ 09:49 by Jason Coronado MD) Dysmenorrhea Mixed hyperlipidemia Arthritis of right glenohumeral joint Shoulder pain, right PONV (postoperative nausea and vomiting) Hx of infertility History of blood transfusion Yeast infection Diabetes HTN (hypertension) Surgical History History of colonoscopy (~02/26/24) Tubal ligation status Hx of abdominoplasty Family History Father Pre-diabetes High cholesterol Mother Diabetes High cholesterol High blood pressure Gout Social History Housing: House Are you a primary child care education coordinator to a significant other at home: Yes (children, supportive ) Do you presently have visiting nurse or other home services: No Alcohol intake: current Alcohol intake frequency: holidays/special occasions only Patient Tobacco Use Status: Former Tobacco user Tobacco use type: Cigarette service: No Current occupational status: employed Current occupation: [employer] Cognitive needs: No Hearing needs: No Vision needs: Yes (reading) Questionnaire Thrive Questionnaire Date Thrive assessed: 05/11/25 AUDIT C Alcohol Use Questionnaire (AUDIT-C) 1. How often do you have a drink containing alcohol?: Monthly or less 2. How many drinks containing alcohol do you have on a typical day when you are drinking?: 1 or 2 3. How often do you have six or more drinks on one occasion?: Never Total Score: 1 TAMMI-7 AMB Questionnaire TAMMI-7 Date TAMMI - 7 assessed: 05/11/25 Source: Developed by Drs. Isaak De Leon, Zoey Mckeon, Isaiah Denise and colleagues, with an educational jus from [employer]. Review of Systems Narrative Review of Systems - General: Reports feeling well. - Gastrointestinal: Reports some constipation. - Genitourinary: Reports painful and uncontrolled menses. - Musculoskeletal: Denies swelling or pain in her legs. All systems reviewed & are unremarkable except as reviewed in HPI and above Physical exam (Primary Care) Vital Signs: Last Vital Signs Temp 96.8 F 09/25/25 09:30 Pulse 70 09/25/25 09:30 Resp 16 09/25/25 09:30 BP 124/80 09/25/25 09:30 Pulse Ox 97 09/25/25 09:30 Oxygen Delivery Method Room Air 09/25/25 09:30 Care Plan Goal for BP management: Pressures in Goal Next steps: Continue same medications BMI result Body Mass Index 25.2 Tobacco/Smoking Status: Tobacco use Status Tobacco use date assessed 05/11/25 09/25/25 09:35 Patient Tobacco Use Status Former Tobacco user 09/25/25 09:35 Tobacco use type Cigarette 09/25/25 09:35 Thrive Assessment: Date of Thrive Assessment Date Thrive assessed 05/11/25 09/25/25 09:35 Narrative Physical Exam General: +Alert and oriented, Well nourished, No acute distress. Eye: Pupils are equal, round and reactive to light, Intact accommodation, Extraocular movements are intact, Normal conjunctiva, Vision unchanged. HENT: Normocephalic, Atraumatic, Tympanic membranes are clear, Normal hearing, Oral mucosa is moist, No pharyngeal erythema, Ear canals patent. Respiratory: Lungs CTA bilaterally, No wheeze, Respirations are non-labored. Cardiovascular: Regular rate, Regular rhythm, S1 auscultated, S2 auscultated, No murmur, Good pulses equal in all extremities, Normal peripheral perfusion, No edema. Gastrointestinal: Soft, Non-tender, Non-distended, Normal bowel sounds, No organomegaly, Slight constipation noted. Musculoskeletal: Normal range of motion, Normal strength, No tenderness, No swelling, No deformity, Normal gait. Integumentary: Warm, Dry, [place], Intact. Neurologic: Alert, Oriented, Normal sensory, Normal motor function, No focal defects, Cranial Nerves II-XII are grossly intact, Normal deep tendon reflexes. Psychiatric: Cooperative, Appropriate mood & affect, Normal judgment. Coding Level of Care Code Est Pt Level 4 (48265) Add On Problem Visit Only Diagnoses Mixed hyperlipidemia E78.2 Type 2 diabetes mellitus with hyperglycemia, without long-term current use of insulin E11.65 Diabetes mellitus type: type 2 Diabetes mellitus usp insulin use: without roasterman use Diabetes mellitus complication status: with hyperglycemia Primary hypertension I10 Hypertension type: primary hypertension Dysmenorrhea N94.6 Assessment & Plan Assessment & Plan (1) Mixed hyperlipidemia: Comment: - The patient's elevated LDL of 138 mg/dL is a concern, given her comorbid diabetes and hypertension, which increases her cardiovascular risk. - After discussing the benefits of starting atorvastatin, the patient expressed a preference to first attempt to lower her cholesterol through dietary modifications. - We will recheck a lipid panel in 6 months, and if her cholesterol remains elevated at that time, we will initiate statin therapy. Code(s): E78.2 - Mixed hyperlipidemia Category: Medical (2) Diabetes: Comment: - The patient's diabetes is managed by endocrinology and is relatively well-controlled with an A1c of 7.3%. - She is on a stable maintenance dose of Mounjaro 5 mg weekly. - We will continue the current management. Code(s): E11.9 - Type 2 diabetes mellitus without complications Category: Medical Qualifiers: Diabetes mellitus type: type 2 Diabetes mellitus roasterman insulin use: without roasterman use Diabetes mellitus complication status: with hyperglycemia Qualified Code(s): E11.65 - Type 2 diabetes mellitus with hyperglycemia (3) HTN (hypertension): Comment: - Her blood pressure is well-controlled on labetalol 100 mg and lisinopril 5 mg. - The patient was educated on the renal-protective benefits of lisinopril, particularly in the context of diabetes. - We will continue her current antihypertensive regimen. Code(s): I10 - Essential (primary) hypertension Category: Medical Qualifiers: Hypertension type: primary hypertension Qualified Code(s): I10 - Essential (primary) hypertension (4) Dysmenorrhea: Comment: - This is managed by her math and science division chair with norethindrone acetate. - She will continue with her current plan. Code(s): N94.6 - Dysmenorrhea, unspecified Category: Medical Plan: Health Maintenance: - The patient has had a mammogram and Pap smear and is considered up to date on both. - Her colonoscopy is also up to date. - A discussion was had regarding her increased cardiovascular risk due to the combination of hypertension, diabetes, and hypercholesterolemia. - Dietary counseling included advice on reducing cholesterol intake, specifically mentioning egg yolks. - A follow-up visit is planned in 6 months to re-evaluate her lipid panel after a trial of lifestyle modifications. Patient was informed and verbally consented to the use of an ambient scribe for clinic note documentation during this visit. Plan I reviewed the patient's lab results from April, noting her total cholesterol of 205 and LDL of 138, which are elevated. I explained that having high cholesterol, along with her existing diabetes and hypertension, significantly increases her risk for cardiovascular events like heart attacks and strokes. I recommended starting atorvastatin to lower her cholesterol, but she expressed a preference to try and manage it with diet and lifestyle changes first. We agreed to recheck her lipid panel in 6 months, and if the levels remain high, we will start the medication. I also explained the importance of her continuing lisinopril, not just for blood pressure, but for its kidney-protective benefits in the setting of diabetes, given her family history. I confirmed she is up-to-date with her health screenings and we scheduled a follow-up appointment in six months with labs to be done beforehand. Orders: Orders Complete Blood Count Auto Diff 6 Months Z00.00 - Encounter for general adult medical examination without abnormal findings Hemoglobin A1c 6 Months Z00.00 - Encounter for general adult medical examination without abnormal findings Hepatitis A,B,C Profile 6 Months Z00.00 - Encounter for general adult medical examination without abnormal findings Lipid Panel 6 Months Z00.00 - Encounter for general adult medical examination without abnormal findings Syphilis Screen 6 Months Z00.00 - Encounter for general adult medical examination without abnormal findings Vitamin D 25-OH Total 6 Months Z00.00 - Encounter for general adult medical examination without abnormal findings Comprehensive Met. Panel 6 Months Z00.00 - Encounter for general adult medical examination without abnormal findings HIV Ab/Ag 6 Months Z00.00 - Encounter for general adult medical examination without abnormal findings Microalbumin, Random (w Creat) 6 Months Z00.00 - Encounter for general adult medical examination without abnormal findings TSH reflex Free T4 6 Months Z00.00 - Encounter for general adult medical examination without abnormal findings Patient Instructions: - Continue all your current medications as they have been prescribed. - It is important to continue taking lisinopril as it helps protect your kidneys from damage related to diabetes. - Make changes to your diet to help lower your cholesterol. Be mindful of how much cholesterol you eat, including from sources like egg yolks. - Drink plenty of fluids to help with constipation. - In about 6 months, please get blood work done one week before your next appointment. - You can have your blood drawn at our lab location in [place] at [address]. - Please schedule a follow-up appointment at the [facility] for 6 months from now.
[2025-09-25 09:30] VITALS: BP 124/80; PULSE 70; RESP 16; TEMP 36; O2SAT 97; BMI 25.2
--- OUTSIDE RECORDS SUMMARY | 2025-09-25 09:50 | XMS_ITS | Patient Health Record ---
Author Organization [facility] Address [address] [place] [id number] Care Team Providers Care Field Contact Person Name Role Phone Mariana (RETIRED) Kalin WEEKS Primary Care Provide Isaak Lombardi [phone] Allergies Allergen (clinical drug ingredient) Drug/Non Drug Allergy documented on EMR Reaction Allergy Type Onset Date Status Penicillin Unknown Drug Allergy Active Reason For Referral No Information Medications Medication SIG (Take, Route, Frequency, Duration) Notes Start Date End Date Status Norethindrone Acetate 5 MG Tablet TAKE 1 TABLET BY MOUTH EVERY DAY Oral; Duration: 90 Active Jardiance 10 MG Tablet TAKE 1 TABLET BY MOUTH EVERY DAY Oral; Duration: 30 Active Labetalol HCl 100 MG Tablet Oral; Duration: 90 Active Social History Tobacco Use: Social History Observation Description Date Details (start date - stop date) Former Smoker NA - NA Social History Drugs/Alcohol: Social Info Question Answer Notes Alcohol Screen Did you have a drink containing alcohol in the past year? Yes How often did you have a drink containing alcohol in the past year? Monthly or less (1 point) How many drinks did you have on a typical day when you were drinking in the past year? 1 or 2 drinks (0 point) How often did you have 6 or more drinks on one occasion in the past year? Never (0 point) Points 1 Interpretation Negative Tobacco Use: Social Info Question Answer Notes Tobacco Use/Smoking Patient is a former smoker How long has it been since you last smoked? 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 [employer] Section Notes: Nonsmoker; no sig alcohol Problems Problem Type SNOMED Code ICD Code Onset Dates Problem Status W/U Status Risk Notes Problem Colon cancer screening (211220804) Colon cancer screening (Z12.11) Active confirmed Problem Pre-procedure evaluation check (362121986) Encounter for other preprocedural examination (Z01.818) Active confirmed Problem Diverticular disease of colon (866168643) Diverticulosis of large intestine without perforation or abscess without bleeding (K57.30) Active confirmed Plan Of Treatment Future Test Test Name Order Date COLONOSCOPY 11/26/2023 Insurance Providers Payer Name Payer Address Payer Phone Subscriber Number Group Number Insured Name Patient Relationship to Insured Coverage Start Date Coverage End Date [facility] [address] [place] [address] [id number] KRISTA CHOPRA Self - patient is the insured Medical (General) History Medical History History ICD Code Hypertension NIDDM Denies LA,DM,CVA,Lung disease,renal dise ase Surgical History Surgery Date(Month/Year) Abdominoplasty 04/18
--- OUTSIDE RECORDS SUMMARY | 2025-09-25 09:50 | XMS_ITS | Continuity of Care Document ---
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 Care Team Information Receiv er [phone] Problems Active Problems Provider Date Type 2 diabetes mellitus ALEX Mg Onse t: 01/13/2025 Essential hypertension ALEX Mg Onset: 01/13/2025 Social History Type Date Description Comments Sex Female Sex Unknown Tobacco Use Start: Unknown End: Unknown Quit Smoking Status Reviewed: 09/28/13 Quit ETOH Use Occasionally consumes alcoho l Medications Active Medications SIG Qnty Indications Order ing Provider Date Rxoehnbldv8ix Tablets Take 1 Tablet By Mouth Every Day Frieda Lamb M.D. Onetouch VerioStrips Use 1 Test Strip Vi a Meter Twice A Day.E11.9 Kalin Peña M.D. Norethindrone Biivkvm5mt Tablets Take 1 Tablet By Mouth Every Day Case Najera M.D. Labetalol BFC438ct Tablets Take 1 Tablet By Mouth Twice A Day Kalin Peña M.D. Bapkwstc532ff Tablets Take 1 Tablet By Mouth 2 Times A Day as Needed For Pain. Take With Food/Full Gla Lexie Talavera NP Fluticasone Vkuqsxrrpb84pfl/Act Suspension Give 1 Squirt(S) In Both Nostrils Twice A Day Kalin Peña M.D. Swrzntno4uh/0.5ML Solution Auto-Inject Inject 0.5 ML (5 MG) Subcutaneously Weekly Frieda Lamb M.D. History Medications Mounjaro2.5mg/0.5ML Solution Auto-Inject inject 2.5 mg weekly subcutaneously 2ml E11.Gabe Rascon M.D. 01/13/2025 - 07/03/2025 Vital Signs Date Vital Result Comment 07/03/2025 11:49am BP Systolic 120 mmHg BP Diastolic 70 mmHg Heart Rate 71 /min Height 60 inches 5'0 Weight 134.00 lb BMI (Body Mass Index) 26.2 kg/m2 Results Test Acquired Date Facility Test Result H/L Range N ote Glucose Fingerstick 07/03/2025 Inhouse Glucose Fingerstick 150 Glucose Fingerstick 02/24/2025 Inhouse Glucose Fingerstick 131 Glucose Fingerstick 01/13/2025 Inhouse Glucose Fingerstick 275 Medical Devices Description No Information Available Encounters Type Date Location Provider Dx Diagnosis Office Visit 07/03/2025 11:20a Main Office rBitany Mcguire CNP E11.9 Type 2 diabetes mellitus without complications I10 Essential (primary) hypertension E78.00 Pure hypercholestero lemia, unspecified Assessments Date Code Description Provider 07/03/2025 E11.9 Type 2 diabetes mellitus without complications Britany Mcguire CNP 07/03/2025 I10 Essential (primary) hyperten emily Britany Mcguire CNP 07/03/2025 E78.00 Pure hypercholesterolemia, u nspecified Britany Mcguire CNP Plan of Treatment Future Appointment(s):* 10/03/2025 8:20 am - Britany Mcguire CNP at Main Office 02/24/2025 - ALEX Mg* E11.9 Type 2 diabetes mellitus without complications * I10 Essential (primary) hypertension Functional Status Description No Information Available Mental Status Description No Information Available Referrals Description No Information Available
== END 2025-09-25 09:53 | disposition home or self-care (01) ==
LOC: HO.HMCHD 09:24
PROVIDERS: PCP Internal Medicine; Visit Provider Student in an Organized Health Care Education/Training Program
DX: E78.2 Mixed hyperlipidemia (principal); E11.65 Type 2 diabetes mellitus with hyperglycemia; I10 Essential (primary) hypertension; N94.6 Dysmenorrhea, unspecified